=== PATIENT | female | born 1985 | race Caucasian/White ===

== ENCOUNTER 2020-02-25 16:20 | Outpatient (CLI) | payer BC, SELFPAY ==
--- NOTE | ~2020-02-25 | MR_ITS ---
EXAMINATION: MR brain/brain stem wo con EXAM DATE: 02/25/2020 17:00 INDICATION: Generalized migraine headaches, dizziness. Symptoms one year. TECHNIQUE: Magnetic resonance imaging (MRI) of the brain/brain stem obtained without contrast. Sagitt al T1, axial diffusion, gradient echo (T2*), T1, T2, FLAIR sequences obtained. There is no prior st udy for comparison. FINDINGS: There are no areas of restricted diffusion to suggest acute infarction. There is no acute hemorrhage seen on the T2*, a hemosiderin sensitive sequence. No intraparenchymal brain mass. The ve ntricles are normal in size. There are no extra-axial collections. Flow voids are seen in the cereb ral arteries on the T2-weighted sequences consistent with their expected patency. The orbits are unr emarkable. Soft tissue is unremarkable. No evidence of sinus or mastoid opacity. IMPRESSION: 1. Unremarkable brain MRI examination. Reviewed, dictated and finalized at location A.
== END 2020-02-25 16:21 | disposition home or self-care (01) ==
LOC: ANHIMG 16:27
PROVIDERS: PCP Family Medicine; Visit Provider Family Medicine
DX: R51 Headache (principal); R53.1 Weakness; R53.83 Other fatigue
CPT/HCPCS: 70551

== ENCOUNTER 2020-04-13 17:27 | Outpatient (CLI) | payer BC, SELFPAY ==
--- NOTE | ~2020-04-13 | XR_ITS ---
EXAMINATION: XR hip RT min 2V DATE: 04/13/2020 17:52 INDICATION: Right hip pain TECHNIQUE: Anteroposterior, frog leg, and cross-table lateral views of affected hip were obtained. COMPARISON: None. FINDINGS: Bone alignment is normal. There is no fracture. An IUD is noted. There are phleboliths in t he pelvis. IMPRESSION: 1. No acute osseous abnormality. Reviewed, dictated and finalized at location A.
== END 2020-04-13 17:28 | disposition home or self-care (01) ==
PROVIDERS: PCP Family Medicine; Visit Provider Family Medicine
DX: M25.551 Pain in right hip (principal)
CPT/HCPCS: 73502

== ENCOUNTER 2020-07-18 10:09 | Outpatient (CLI) | payer BC, SELFPAY ==
--- NOTE | ~2020-07-18 | XR_ITS ---
EXAMINATION: XR lg joint inject/asp w image DATE: 07/18/2020 11:09 INDICATION: Right hip pain TECHNIQUE: A time-out was performed to verify the patient's name, date of , and procedure to b e performed. The procedure including the risks, benefits, and alternatives was discussed with the pat ient. Risks discussed included bleeding and infection. The patient understood the risks and agreed to proceed. The skin overlying the right hip joint was prepped and draped in usual sterile fashion. A nesthetic was administered with 1% lidocaine subcutaneously. A 22 G needle was advanced under fluoro scopic guidance into the joint. Injection of 0.4 mL of Omnipaque 240 confirmed intra-articular posit ion of the needle. Subsequently, injectate consisting of 5 mm of a 3:2 mixture of 1% lidocaine: 10 m g/mL Kenalog for a total dosage of 20 mg Kenalog was instilled. Washout of contrast was seen confirmi ng intra-articular administration. The needle was removed and the entry site was cleaned and dressed. There were no immediate complications. Fluoroscopy exposure time was 0.1 minutes. The total number of images was 2. FINDINGS: Real-time fluoroscopy demonstrates the needle in the right hip joint. Patient's pain prior to procedure:3/10. Patient's pain following the procedure: 0/10. IMPRESSION: 1. Right hip joint injection of local anesthetic and steroid with decrease in the patient's presentin g pain. 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 Right hip joint injection of local anesthetic and steroid with decrease in t he patient's presenting pain.
== END 2020-07-18 10:10 | disposition home or self-care (01) ==
PROVIDERS: PCP Family Medicine; Visit Provider Orthopaedic Surgery
DX: M16.0 Bilateral primary osteoarthritis of hip (principal)
CPT/HCPCS: 20610; 77002; J3301; Q9966

== ENCOUNTER → 2021-01-04 09:39 | Outpatient (CLI) | payer BC, SELFPAY ==
--- NOTE | ~2021-01-04 | US_ITS ---
US abdomen complete EXAMINATION: US Abdomen Complete INDICATION: Chronic diarrhea, cramping and gas PROCEDURE: Realtime High Resolution abdomen ultrasound. COMPARISON: No prior studies for comparison FINDINGS: Gallbladder within normal limits. No gallstones, pericholecystic fluid, gallbladder wall t hickening or biliary dilatation. Common bile duct measures 4 mm. Liver echotexture within normal limits without focal mass. Pancreas within normal limits. Pancreati c tail is obscured by bowel gas. Spleen is unremarkeable. Renal echotexture is within normal limits bilaterally without hydronephrosis, contour deforming mass or renal stone. Right kidney measures 9.3 cm. Left kidney measures 9 cm. Visualized aspects of the aorta and IVC are within normal limits. Portal vein is patent. No sonograph ic Tavares's sign indicated by the technologist. IMPRESSION: 1: Normal abdominal ultrasound. Reviewed, dictated and finalized at location A.
== END ==
PROVIDERS: PCP Family Medicine; Visit Provider Nurse Practitioner Family
DX: K52.9 Noninfective gastroenteritis and colitis, unspecified (principal)
CPT/HCPCS: 76700

== ENCOUNTER 2021-06-29 08:35 | Outpatient (CLI) | payer BC, SELFPAY ==
--- NOTE | ~2021-06-29 | XR_ITS ---
EXAMINATION: XR shoulder LT min 2V INDICATION: Left shoulder pain TECHNIQUE: Four views of the left shoulder are submitted. COMPARISON: None FINDINGS: Normal alignment. No fracture. Glenohumeral and acromioclavicular joint spaces are normal. Soft tissues are unremarkable. IMPRESSION: 1. No acute osseous abnormality. 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
== END 2021-06-29 08:36 | disposition home or self-care (01) ==
LOC: ANHIMG 08:37
PROVIDERS: PCP Family Medicine; Visit Provider Family Medicine
DX: M25.512 Pain in left shoulder (principal)
CPT/HCPCS: 73030

== ENCOUNTER 2021-12-21 09:06 | Outpatient (CLI) | payer BC, SELFPAY ==
--- NOTE | ~2021-12-21 | XR_ITS ---
XR lumbar spine 2-3V 12/21/2021 09:30 Indication: Low back pain Procedure: 3 views lumbar spine Comparison: No prior studies for comparison. Findings: There are spinal stimulator leads partially visualized. There is disc narrowing at L5-S1. V ertebral body heights are maintained. Pedicles intact. No evidence for acute fracture, subluxation or spondylolisthesis. There is an IUD in the pelvis. Impression: 1: Mild lumbar spondylosis. Reviewed, dictated and finalized at location A. Impression: 1: Mild lumbar spondylosis.
== END 2021-12-21 09:07 | disposition home or self-care (01) ==
LOC: ANHIMG 09:08
PROVIDERS: PCP Family Medicine; Visit Provider Nurse Practitioner Family
DX: M54.50 Low back pain, unspecified (principal); M47.816 Spondylosis without myelopathy or radiculopathy, lumbar region
CPT/HCPCS: 72100

== ENCOUNTER 2022-04-02 14:35 | Outpatient (CLI) | payer BC, SELFPAY ==
--- NOTE | ~2022-04-02 | US_ITS ---
EXAMINATION: US venous doppler [facility] DATE: 04/02/2022 15:11 INDICATION: Left calf pain. TECHNIQUE: Grayscale ultrasound images without and with compression and Doppler ultrasound images of the left lower extremity veins were obtained. COMPARISON: None. FINDINGS: The visualized portions of left common femoral vein, profunda (deep) femoral vein, femoral vein, popl iteal vein, peroneal veins, posterior tibial veins, and greater saphenous vein outflow are patent. Th ere is a thrombosed superficial vein in left calf. IMPRESSION: 1. No deep venous thrombosis. 2. Thrombosed superficial vein in left calf. Reviewed, dictated and finalized at location A.
== END 2022-04-02 14:36 | disposition home or self-care (01) ==
LOC: ANHIMG 14:36
PROVIDERS: PCP Family Medicine; Visit Provider Nurse Practitioner Family
DX: M79.662 Pain in left lower leg (principal); I82.812 Embolism and thrombosis of superficial veins of left lower extremity
CPT/HCPCS: 93971

== ENCOUNTER 2023-04-24 09:02 | Outpatient (CLI) | payer BC, SELFPAY ==
--- NOTE | 2023-05-06 17:22 | WPDHOMESLEEP ---
Sleep Study - Home Unattended Date of Study: 04/24/23 Ordering Provider: Marycruz Fernández, Interpreting Provider: Kelly Pop, DO Home Sleep Study Type: Watch PAT Height: 1.6 m Weight: 99.79 kg Body Mass Index: 38.9 Neck Circumference (inches): 14.5 [place]: 14 Reason for Sleep Study Loud snoring, difficulty sleeping Sleep History The patient is a 37-year-old female with bipolar disorder, depression, anxiety, migraines and history of tobacco use that had a sleep study ordered by her primary care for evaluation of sleep disturbances. The patient denies awakening from sleep short of breath. She occasionally awakens at night with heartburn, belching or cough. She constantly snores loudly enough that others complain. She occasionally has trouble sleeping when she has a cold. He rarely wakes up gasping for air throughout the night. She occasionally has breathing problems at night observed by herself or others. She constantly sweats excessively at night. She occasionally has heart palpitations or irregular heartbeats during the night. She occasionally falls asleep during the day and frequently falls asleep while driving. She denies cataplexy and sleep paralysis. She occasionally has trouble at school or work due to sleepiness. She rarely experiences vivid dreamlike scenes upon awakening or falling asleep. He denies feeling afraid of falling asleep he rarely has nightmares. She denies remembering her dreams. She rarely has thoughts racing through her mind. She constantly feels sad, depressed and anxious. She constantly has muscular tension. She frequently notices parts of her body jerk. She rarely kicks during the night. She constantly has crawling and aching feelings in her legs and constantly has leg pain during the night. She rarely grinds her teeth during sleep and rarely awakens with morning jaw pain. She is constantly bothered by pain during the day and constantly awakened by pain during the night. She constantly wakes up feeling stiff in the morning. She constantly wakes up with sore or achy muscles. She constantly wakes up with pain in the neck, spine or other joints. Her bedtime on weekdays and weekends is variable. It takes her 30 minutes to fall asleep. She wakes up 2-3 times throughout the night to urinate and is able to fall back asleep immediately. She has a variable wake up time on both weekdays and weekends. She typically gets 8 hours of sleep per night. She will stay in bed for 30-60 minutes after waking up in the morning. She currently lives with her and son. She currently goes sleeps with her son. She denies consuming any caffeinated beverages within 2 hours of bedtime. She denies engaging in physical exercise before bedtime. She will read and watch television before falling asleep. She denies taking naps in the afternoon or the evening. She consumes 5-6 caffeinated beverages throughout the day. She is a former smoker. She denies alcohol use. She admits to recreational drug use. [facility] Past Medical History Medical History (Updated 05/06/23 @ 17:34 by Kelly Pop DO) Anxiety Bipolar 2 disorder Depression Migraine Sleep Procedure The sleep study was completed using WatchPAT a technically adequate device with seven channels: peripheral arterial tone, actigraphy, body position, snore, respiratory movement, pulse oximetry, sleep staging, and heart rate. Prior to using the device, the patient received verbal and written instructions for its application and was provided with the help desk phone number for additional telephonic instruction with 24-hour availability of qualified personnel to answer questions. The study was scored using CMS guidelines. Sleep Architecture The patient had a total recording time of 7 hours 8 minutes and a total sleep time of 6 hours 31 minutes. The sleep efficiency was 91.25%. The sleep latency was 16 minutes and the REM latency was 150 minute
[2023-05-06 17:37] VITALS: BMI 38.9
== END 2023-04-30 15:50 | disposition home or self-care (01) ==
PROVIDERS: PCP Family Medicine; Visit Provider Family Medicine
DX: G47.30 Sleep apnea, unspecified (principal); G47.9 Sleep disorder, unspecified
CPT/HCPCS: 95800

== ENCOUNTER 2024-04-28 11:14 | Outpatient (CLI) | payer BC, SELFPAY ==
--- NOTE | ~2024-04-28 | US_ITS ---
Limited Abdominal Sonogram: Real-time sonographic imaging of the right upper quadrant was performed. Clinical History: Abnormal liver enzymes Findings: The liver appears normal with no evidence of mass lesion or bile duct dilatation. Main por cristobal vein demonstrates normal direction of flow. The gallbladder is well distended, and appears normal with no evidence of gallstone or wall thickening. The common bile duct measures 4 mm. The visualize d pancreas, aorta, and IVC are unremarkable. Right kidney measures 9.4 cm in length, without hydronep hrosis or renal stone. Impression: No significant abnormality seen. Reviewed, dictated and finalized at location . Impression: No significant abnormality seen.
== END 2024-04-28 11:15 | disposition home or self-care (01) ==
LOC: MICIMG 11:15
PROVIDERS: PCP Nurse Practitioner Family; Visit Provider Nurse Practitioner Family
DX: R74.01 Elevation of levels of liver transaminase levels (principal)
CPT/HCPCS: 76705

== ENCOUNTER 2024-10-16 01:08 | Emergency (ER) | payer BC, SELFPAY ==
[2024-10-16 01:09] VITALS: BP 159/80; PULSE 68; RESP 18; TEMP 36.3; O2SAT 100
--- OUTSIDE RECORDS SUMMARY | 2024-10-16 01:11 | XMS_ITS | Clinical Summary ---
Author Organization [facility] Address [address] [place] [id number] Phone Care Team Providers Care Bus Driver/Monitor Name Role Phone Quentin Duque MD Primary Care Provider [phone] Social History Tobacco Use Types Packs/Day Years Used Date Smoking Tobacco: Never Assessed Comments Unknown Sex and Gender Information Value Date Recorded Sex Assigned at Not on file Legal Sex Female 2:37 PM CDT Gender Identity Not on file Sexual Orientation Not on file Plan of Treatment Health Maintenance Due Date Last Done Comments DTAP/TDAP/TD VACCINES (1 - Tdap) 2002 HEPATITIS B VACCINES (1 of 3 - 19+ 3-dose series) 2002 PAP SMEAR 2004 CERVICAL CANCER SCREENING 2013 HPV/Cotest (30-65) 2013 PAP SMEAR 2013 BREAST CANCER SCREENING 2023 INFLUENZA VACCINE (#1) 2024 HPV VACCINES Aged Out No longer eligi ble based on patient's age to complete this topic PNEUMOCOCCAL VACCINE 0-49 YEARS Aged Out No longer eligible based on patient's age to complete this topic Insurance [facility] [id number] Care Teams Bus Driver/Monitor Relationship Specialty Start Date End Date Quentin Duque MD [address] [place] [address] PCP - General Family Practice 12/22/13
--- OUTSIDE RECORDS SUMMARY | 2024-10-16 01:11 | XMS_ITS | Encounter Summary ---
Author Organization [facility] Address [address] [place] [address] Care Team Providers Care Immunopathologist Name Role Phone Marycrzu Fernández MD Primary Care Provider + Vinny Dowling DO Unavailable [phone] Juve Guerrero MD Unavailable [phone] Encounter Details Date Type Department Care Team (Late st Contact Info) Description 10/13/2024 Orders Only [facility] Health Information Management [address] [place] [address] Scanning, Provider Social History Tobacco Use Types Packs/Day Years Used Date Smoking Tobacco: Former Cigarettes 0.5 2012 Smokeless Tobacco: Never Alcohol Use Standard Drinks/Week Comments Not Currently 0 (1 standard drink = 0.6 oz pur e alcohol) AUDIT-C Answer Date Recorded Q1: How often do you have a drink containing alcohol? Never 02/05/2024 Q2: How many drinks containi ng alcohol do you have on a typical day when you are drinking? Patient does not drink Q3: How often do you have si x or more drinks on one occasion? Never 02/05/2024 Hunger Vital Sign Answer Date Recorded Within the past 12 months, y ou worried that your food would run out before you got the money to buy more. Never true 04/02/20 24 Within the past 12 months, t he food you bought just didn't last and you didn't have money to get more. Never true 04/02/2024 Personal Safety Answer Date Recorded Have you ever been in or are you currently in a harmful physical or emotional relationship or is someone making you feel afraid or unsafe? 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 Author CCM Chronic Pain Care Plan Chronic Care Management On track(2022 9:20 AM CDT) No Dianne Clancy, DELIO Note: Problem: Chronic Pain Goals: 1. Minimize further functional decline 2. Maximize quality of life 3. Control pain Strategies: - Activity/exercise program recommendation - Conservative stepwise pain medicine strategy with multi-disciplinary approach - Recommend healthy lifestyle strategies and compensatory methods as needed Reduce the likelihood of falling Lifestyle On track(2022 9:20 AM CDT) No Dianne Clancy, DELIO Note: Below are four things you can do to prevent falls: Begin an exercise program to improve your leg strength & balance Ask your doctor or pharmacist to review your medicines Get annual eye check-ups & update your eyeglasses Make your home safer by: Removing clutter & tripping hazards Putting railings on all stairs & adding grab bars in the bathroom Having good lighting, especially on stairs Contact your local community or senior mineral for information on exercise, fall prevention programs, or options for improving home safety. documented as of this encounter Procedures Procedure Name Priority Date/Time Associated Diagnosis Comments SCAN - OTHER ORDERS 10/13/2024 documented in this encounter Results * SCAN - OTHER ORDERS (10/13/2024) us Provider Scanning Final Result documented in this encounter Visit Diagnoses Not on filedocumented in this encounter Care Teams Immunopathologist Relationship Specialty Start Date End Date Marycruz Fernández MD [address] [place] [address] [address] [place] [id number] PCP - General Family Medicine 06/23/20 Vinny Dowling DO [address] [facility] [address] [place] [address] Referring Physician Psychiatry 06/23/20 Juve Guerrero MD [address] [facility] [address] [place] [address] Consulting Physician Obstetrics and Gynecology 02/05/24 documented as of this encounter
--- OUTSIDE RECORDS SUMMARY | 2024-10-16 01:11 | XMS_ITS | Referral Summary ---
Author Organization [facility] Address [address] [place] [address] Care Team Providers Care Production Operations Inspector Name Role Phone Marycruz Fernández MD Primary Care Provider + Vinny Dowling DO Unavailable [phone] Juve Guerrero MD Unavailable [phone] Encounters Date Type Department Care Team Description 10/13/2024 Orders Only [facility] Health Information Management [address] [place] [address] Scanning, Provider from Last 3 Months Allergies Active Allergy Reactions Criticality Noted Date Comments Cephalexin Nausea only Low 02/28/2023 Medications lithium ER (ESKALITH) 450 mg CR tablet Take 1 tablet (450 mg total) by mouth 2 (two) times a day Active lamoTRIgine (LaMICtal) 100 mg tablet Take 1.5 tablets (150 mg total) by mouth 2 (two) times a day 0 Active docosahexaenoic acid/epa (FISH OIL ORAL) Take 3,750 mg by mouth daily Active lurasidone (LATUDA) 40 mg tablet Take 2 tablets (80 mg total) by mouth nightly Active cetirizine (ZyrTEC) 10 mg tablet Take 1 tablet (10 mg total) by mouth as needed Active acetaminophen (TYLENOL) 500 mg tablet Take 2 tablets (1,000 mg total) by mouth every 6 (six) hours as needed for pain Active vscctgdk-tgqf-E W-cxxiynn-oejr (One-A-Day Womens Formula) 18 mg iron-400 mcg-500 mg Ca tablet Take 1 tablet by mouth daily Active copper (PARAGARD) 380 square mm IUDIndications: Contraception,2 014 in STL 1 each by intrauterine route once Active buPROPion XL (WELLBUTRIN XL) 300 mg 24 hr tablet Take 1 tablet (300 mg total) by mouth daily Active sertraline (ZOLOFT) 100 mg tablet Take 1 tablet (100 mg total) by mouth 2 (two) times a day Active propranolol LA (INDERAL LA) 60 mg 24 hr capsuleIndicati ons:Migraine Prevention Take 1 capsule (60 mg total) by mouth daily 2 Active omeprazole (PriLOSEC) 40 mg capsule Take 1 capsule (40 mg total) by mouth daily 2 Active gabapentin (NEURONTIN) 800 mg tablet Take 1 tablet (800 mg total) by mouth 3 (three) times a day 270 tablet 1 3 Active traZODone (DESYREL) 50 mg tablet Take 1 tablet (50 mg total) by mouth nightly as needed for sleep 4 Active Hospital, Clinic, or Other Facility Administered Medication Ordered Dose Route Frequency Start Date End Date Status copper (PARAGARD) 380 square mm IUD 1 eachIndications:Pre gnancy Contraception 1 each intrauterine Continuous (implanted device) 11/04/2023 4 Active Active Problems Problem Noted Date Diagnosed Date Intrauterine contraceptive d evice threads lost, initial encounter 02/05/2024 IUD threads lost 12/26/2023 Pain in joint of right hip 06/06/2020 Articular cartilage disorder of hip 06/06/2020 Morbid obesity 06/06/2020 Other chronic pain 04/25/2020 Bipolar I disorder, most rec ent episode (or current) depressed 04/25/2020 Obstructive sleep apnea syndrome 02/16/2020 Degeneration of lumbosacral intervertebral disc 01/06/2020 Low back pain 01/06/2020 Lumbar radiculopathy 01/06/2020 Acne 11/30/2019 Dysmenorrhea 11/30/2019 Suicide attempt 01/19/2018 Overview (01/06/2020): 12/2017 -- Overdose SSRI/Wellbutrin. 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 Not on file Not on file Not on tatiana e Last Filed Vital Signs Vital Sign Reading Time Taken Comments Blood Pressure 120/71 04/02/2024 8:40 AM CDT Pulse 62 04/02/2024 8:40 AM CDT Temperature 36.1 C (97 F) 02/05/2024 11:50 AM CDT Respiratory Rate 16 02/05/2024 12:20 PM CDT Oxygen Saturation 99% 04/02/2024 8:40 AM CDT Inhaled Oxygen Concentration - - Weight 99.1 kg (218 lb 6.4 oz) 04/02/2024 8:40 A M CDT Height 160 cm (5' 3 ) 04/02/2024 8:40 AM CDT Body Mass Index 38.69 04/02/2024 8:40 AM CDT Plan of Treatment Not on file Goals Goal Patient Goal Type Associated Problems Recent Progress Patient-Stated? Author CCM Chronic Pain Care Plan Chronic Care Management On track(2022 9:20 AM CDT) No Dianne Clancy, RN Note: Problem: Chronic Pain Goals: 1. Minimize further functional decline 2. Maximize quality of life 3. Control pain Strategies: - Activity/exercise program recommendation - Conservative stepwise pain medicine strategy with multi-disciplinary approach - Recommend healthy lifestyle strategies and compensatory methods as needed Reduce the likelihood of falling Lifestyle On track(2022 9:20 AM CDT) Dianne Wilson, RN Note: Below are four things you can [...] on stairs Contact your local community or [facility] for information on exercise, fall prevention programs, or options for improving home safety. Medical Devices Implanted Type Area Director Retail Brand Development Device Identifier Shelf Expiration Date Model / Serial / Lot [employer] [id number] Vectris 5mm 60cm 1x8 Electrode Mri Lead Neurostimulator - [id number] Implanted:Qty: 1 on 08/11/2020 by Nissa Roberts MD at [facility] Lead Left: Thoracic -Lumbar Spine [employer] 06/01/2023 [id number] / / [id number] [employer] [id number] Vectris 5mm 60cm 1x8 Electrode Mri Lead Neurostimulator - [id number] Implanted:Qty: 1 on 08/11/2020 by Nissa Roberts MD at [facility] Lead Left: Thoracic -Lumbar Spine [employer] 06/01/2023 [id number] / / [id number] [employer] [id number] Vectris 5mm 60cm 1x8 Electrode Trial Lead Neurostimulator - [id number] - [id number] Implanted:Qty: 1 on 07/06/2020 by Nissa Roberts MD at [facility] 4 Spinal Cord Stimulator [employer] 03/24/2024 [id number] / [id number] / Description:07/12/20 receive d 70% relief from SCS trial [employer] [id number] Vectris 5mm 60cm 1x8 Electrode Trial Lead Neurostimulator - [id number] - [id number] Implanted:Qty: 1 on 07/06/2020 by Nissa Roberts MD at [facility] 4 Spinal Cord Stimulator [employer] 06/12/2024 [id number] / [id number] / Copper (Paragard) Iud Uterus [employer] Inc [id number] Neurostimulator Implantable Chronic Pain Rs2 - [id number] - [id number] Implanted:Qty: 1 on 08/11/2020 by Nissa Roberts MD at [facility] Left: Flank [employer] 04/09/2021 [id number] / [id number] / Description:[email or web address]. pdf Procedures Procedure Name Priority Date/Time Associated Diagnosis Comments SCAN - OTHER ORDERS 10/13/2024 PAP ONLY Routine 06/23/2020 2:19 PM JTAC from Last 3 Months or Most Recently Relevant to Health Maintenance Results * SCAN - OTHER ORDERS (10/13/2024) us Provider Scanning Final Result * Pap Only (06/23/2020 2:19 PM JTAC) CLINICAL INFORMATION: SCREEN [facility] LMP 05/24/[address] [facility] Previous Pap INFORMATION NOT PROVIDED [facility] [facility] Prev. Bx INFORMATION NOT PROVIDED [facility] SOURCE: Cervix, Endocervix [facility] [facility] Pap, specimen adequacy Satisfactory for evaluation. Endocervical/kohler sformation zone component present. [employer] [facility] HPV interp Negative for intraepithelial lesion or malignancy. [facility] Body Stylist GABRIEL LYON(ASCP) CT screening location: [place] [address] Administration [place] [address] [facility] Comment [facility] Comment: EXPLANATORY NOTE: The Pap is a screening test for cervical cancer. It is not a diagnostic test and is subject to false negative and false positive results. It is most reliable when a satisfactory sample, regularly obtained, is submitted with relevant clinical findings and history, and when the Pap result is evaluated along with historic and current clinical information. 06/23/2020 2:19 PM JTAC 06/26/2020 6:34 AM JTAC us Juve Guerrero MD LAB CYTOLOGY ORDERABLES Final Result [place] [address] [address] [place] [id number] from Last 3 Months or Most Recently Relevant to Health Maintenance Insurance [employer] [place] [employer] Advance Directives For more information, please contact: [phone] * Full Code (Latest Code Status on File) Date Activated Date Inactivated Comments 08/11/2020 4:00 PM 08/11/2020 9:57 PM Care Teams Production Operations Inspector Relationship Specialty Start Date End Date Marycruz Fernández MD [address] [place] [address] PCP - General Family Medicine 06/23/20 Vinny Dowling DO [address] [facility] [address] [place] [address] Referring Physician Psychiatry 06/23/20 Juve Guerrero MD [address] [place] [address] Consulting Physician Obstetrics and Gynecology 02/05/24
--- OUTSIDE RECORDS SUMMARY | 2024-10-16 01:11 | XMS_ITS | Data Portability ---
Author Organization [place] [facility], Main Office Address [address] [place] [address] Assessment Encounter Date Assessment Date Assessment LastModified by Organization Details LastModified Time 11/25/2023 11/25/2023 38-year-old female presents for follow-up of her bilateral thumb CMC pain. She previously had an injection into her right side back in June. This worked quite well for her but is beginning to wear off. She has been wearing the brace on her right side, she does not have a brace on the left side. She is unable to take anti-inflammator ies. The bilateral thumb CMC joints are bothering her today, and she comes in wanting to get repeat injections. She is tenderness palpation at the thumb CMC joint, worse on the left. Positive grind. She has sensation intact to light touch throughout, 2+ radial pulse. We proceeded with bilateral thumb CMC injections. She tolerated them well. She should continue using topical anti-inflammator ies, and wearing the brace. We got her a brace for the left thumb as well. Follow-up as needed. [email or web address] Not available 11/25/2023 10:09:35 03/08/2024 03/08/2024 The patient has moderate bilateral thumb CMC arthrosis new x-rays today show the right to look slightly worse than the left. We talked about treatment options today in detail she states she can not take oral anti-inflammator y medication because she is on other medications that interact with this therefore she wanted proceed with cortisone only. Under sterile conditions I injected the patient's bilateral thumb CMC joints in the office with 2 cc of 0.5% bupivacaine and 10 mg of Kenalog each. The patient tolerated the procedures well. We will see her back as needed she voiced understanding agrees above plan she will call if her thumb pain returns. [email or web address] Not available 03/08/2024 11:57:08 Plan of Treatment Reminders Order Date Submit Date Provider Last Modified By Organization Details Last Modified Time Details Appointments None recorded. Lab hepatitis C virus Ab, serum [address] (Lab), [address] [place], [address], 4 08:32:35 lipid panel, serum [address] (Lab), [address] [place], [address], 4 08:32:34 vitamin D, 1,25-dihydr oxy, serum [address] (Lab), [address] [place], [address], 4 08:32:34 CMP, serum or plasma [address] (Lab), [address] [place], [address], 4 08:32:34 TSH, serum or plasma [address] (Lab), [address] [place], [address], 4 08:32:34 CBC w/ auto diff [address] (Lab), [address] [place], [address], 4 08:32:34 [email or web address] obin, total, blood [address] (Lab), [address] [place], [address], 08:32:34 Referral None recorded. Procedures injection/a spiration joint/bursa (PROC) 2023 024 [email or web address] In-Office Order, Internal Use Only DO Not Attach Compendium DO Not Attach Compendium, Do Not Delete/merge, [id number] 4 09:56:47 injection/a spiration joint/bursa (PROC) 2023 024 [email or web address] In-Office Order, Internal Use Only DO Not Attach Compendium DO Not Attach Compendium, Do Not Delete/merge, [id number] 4 09:56:47 injection/a spiration joint/bursa (PROC) 2023 024 [email or web address] In-Office Order, Internal Use Only DO Not Attach Compendium DO Not Attach Compendium, Do Not Delete/merge, [id number] 10:11:57 Surgeries None recorded. Imaging MAMMO, screening, digital, bilateral 2024 025 [email or web address] [facility], [address], [place], [address], 5 17:59:20 XR, hand 2023 024 [email or web address] [facility] [place], [address] [facility] [address], [place], [address], 4 11:58:10 MAMMO, screening, digital, bilateral - *Please call pt to schedule* 2023 024 [email or web address] [facility], [address], [place], [address], 4 10:31:40 XR, hand, 3 or more view 2023 024 [email or web address] [facility] [place], [address] [facility] [address], [place], [address], 4 00:25:35 Medication Orders bupivacaine HCl 0.5 % (5 mg/mL) injection solution [address] [facility]26, [address] [place], [place], [id number], 4 11:47:48 Kenalog 10 mg/mL suspension for injection [address] [facility]38140, [address] [place], [place], [id number], 4 11:47:48 bupivacaine HCl 0.5 % (5 mg/mL) injection solution [address] [facility]05770, [address], [place], [id number], 4 11:47:48 Kenalog 10 mg/mL suspension for injection [address] [facility] #91545, [address] [place], [place], [id number], 4 11:47:48 trazodone 50 mg tablet 2023 024 [facility] #42050, [address], [place], [id number], 4 12:29:45 gabapentin 800 mg tablet 2023 024 [facility] #36283, [address], [place], [id number], 4 12:29:51 propranolol ER 60 mg capsule,24 hr,extended release 2023 024 [facility] #98439, [address], [place], [id number], 4 12:32:45 omeprazole 40 mg capsule,del ayed release 2023 024 [facility] #84795, [address], [place], [id number], 4 12:32:47 bupivacaine HCl 0.5 % (5 mg/mL) injection solution 2023 024 3 [facility] #15960, [address], [place], [id number], 4 12:00:42 Kenalog 10 mg/mL suspension for injection 2023 024 [email or web address] 3 [facility] #21256, [address], [place], [id number], 4 12:00:50 Patient TargetsNo targets recorded. Patient Instructions Encounter Date Encounter Id Patient Instructions Last Modified By Organization Details Last Modified Time 07/28/2024 [id number] Follow up in 3 months Tests: Complete mammogram Referral: Recommend: Tetanus vaccine Shingles vaccine [email or web address] Not available 07/28/2024 17:04:57 Reason for Referral None Reported. Results Created Date Observation Date Name Description Value Unit Range Abnormal Flag Note LastModifiedBy Organization Detail LastModifiedTime 11/25/19 24 XR, hand, 3 or more view No observ ation record ed. [email or web address] [facility] [place] [address], [place], [address], 11/25/2023 09:46:28 03/08/20 24 XR, hand No observ ation record ed. [email or web address] [facility] [place] [address], [place], [address], 03/08/2024 11:58:08 04/28/20 24 04/28/2024 US, liver No observ ation record ed. [email or web address] [facility] [address], [place], [address], 04/28/2024 14:16:20 Result Notes None recorded. Problems Name Problem SNOMED Code Status Onset Date Resolution Date Notes Provider Name and Address Organization Details Recorded Time Acne 23294216 Active 2019 Not Available [facility] 3 18:20:54 Lumbar radiculopa thy 596859490 Active Selma Durbin APRN [address], [place], [address] , [employer] 5 16:52:56 Bipolar disorder 46706221 Active 2016 Selma Durbin APRN [address], [place], [address] , [employer] 5 16:52:18 Irritable bowel syndrome with diarrhea 151401011 Active Selma Durbin APRN [address], [place], [address] , [employer] 5 16:52:48 Abdominal pain 45704645 Active Not Available [employer] 3 18:20:54 Sciatica 74746173 Active 2019 Selma Durbin APRN [address], [place], [address] , [employer] 5 16:53:08 Morbid obesity 571530002 Active 2019 Not Available [employer] 3 18:20:54 Dysmenorrh ea 736065995 Active 2019 Not Available [employer] 3 18:20:54 Low back pain 913940909 Active Selma Durbin APRN [address], [place], [address] , [employer] 5 16:52:51 Pain in right hip joint 7925269305492 02 Active 2019 Not Available [facility] 3 18:20:54 Pain of right wrist 4043513500555 00 Active 2021 Not Available [facility] 3 18:20:54 Depressive disorder 35157430 Active 2016 Selma Durbin APRN [address], [place], [address] , [employer] [facility] 5 16:52:39 History of operative procedure on lumbar spinal structure 354410015 Active Not Available [facility] 3 18:20:54 Articular cartilage disorder of hip 129400837 Active 2019 Not Available [facility] 3 18:20:54 Anxiety 21814514 Active 2016 Selma Durbin APRN [address], [place], [address] , [employer] [facility] 5 16:52:13 Degenerati on of lumbosacra l interverte bral disc 96494163 Active Not Available [facility] 3 18:20:54 Diarrhea 62771639 Active Not Available [facility] 3 18:20:55 Obstructiv e sleep apnea syndrome 03679240 Active 2019 Selma Durbin APRN [address], [place], [address] , [employer] [facility] 5 16:53:04 Pain in right hand 5937601837086 09 Active 2022 JASMIN Morley, [employer] [facility] [employer] [facility] 3 15:39:01 Osteoarthr osis of the carpometac arpal joint of the thumb 46870335 Active 2022 Kaden Duque MD [address], [place], [address] , [employer] [facility] [employer] [facility] 3 16:46:19 Sleep apnea 14274685 Active 2022 Marycruz Fernández MD [address], [address], [place], [address] , [place] [facility] 3 12:41:57 Insomnia 489900378 Active 2022 Selma Durbin APRN [address], [place], [address] , [place] [facility] 5 16:52:44 Decreased hearing 968469849 Active 2022 Selma Durbin APRN [address], [place], [address] , [place] [facility] 5 16:52:22 Chronic diarrhea 052167340 Active 2022 Selma Durbin APRN [address], [place], [address] , [place] [facility] 5 16:52:26 Dysuria 02925159 Active 2022 Esther Ohara RN null, [place] [facility] 3 10:51:22 Flank pain 654752535 Active 2022 SUNG Marcelo [address], [place], [address] , [place] [facility] 3 17:18:44 Acute urticaria 508950770 Active 2023 Marycruz Fernández MD [address], [place], [address] , [place] [facility] 4 09:38:43 Eruption 318445207 Active 2023 Marycruz Fernández MD [address], [place], [address] , [place] [facility] 4 18:45:12 Pain of left hand 1083246380312 03 Active 2023 EVI Hunter null, [place] [facility] 4 09:46:04 Liver enzymes level above reference range 949944475 Active 2023 ELISABETH Mccollum [address] [facility] [address], [place], [address] , [employer] 4 16:41:52 Abnormal weight 35432571 Active 2023 Selma Durbin APRN [address], [place], [address] , [employer] 16:52:08 Notes:gas Problem Notes None recorded. Procedures Surgical History Date Name Laterality Status Provider Name and Address Organization Details Recorded Time 11/25/19 24 Ortho - Cortisone Injection completed Joss Mills MD [address], [place], [address], [employer] 11/25/2023 10:08:12 06/24/20 23 Ortho - Cortisone Injection completed Phoebe Casas NP [address], [place], [address], [employer] 06/24/2023 12:21:50 08/15/19 21 implantation of neurostimulator in spine completed Not Available [facility] 09/18/2022 18:19:48 Imaging Results Imaging Date Name Status LastModified by Organiz ation Details LastModified Time 11/25/2023 XR, hand, 3 or more view completed [email or web address] [facility] [place] [address], [place], [address], 11/25/2023 09:46:28 03/08/2024 XR, hand completed [email or web address] [facility] [place] [address], [place], [address], 03/08/2024 11:58:08 04/28/2024 US, liver completed [email or web address] [facility] [address], [place], [address], 04/28/2024 14:16:20 Procedure Notes None recorded. Medical Equipment None Reported. Allergies No known drug allergies Medications Name Sig Start Date Stop Date Status Note LastModified by Organization Details LastModified Time naltrexone 4.5 mg capsule TAKE ONE CAPSULE BY MOUTH EVERY DAY active Not Available Not Available No t Available naltrexone 3mg capsules One capsule by MOUTH daily 07/28 completed Not Available Not Available Not Available naltrexone 1.5mg capsule TAKE ONE CAPSULE BY MOUTH EVERY DAY 07/28 completed Not Available Not Available Not Available naltrexone 4.5mg caps One by MOUTH EVERY DAY 07/28 completed Not Available Not Available Not Available fluoxetine 40 mg capsule TK 2 CS PO QD 01/27 completed Not Available Not Available Not Available cyclobenzap rine 10 mg tablet TK 1 T PO TID PRN 11/09 completed Not Available Not Available Not Available amoxicillin 500 mg capsule TAKE 2 CAPSULES BY MOUTH NOW THEN 1 CAPSULE BY MOUTH THREE TIMES DAILY UNTIL ALL TAKEN 06/30 completed Not Available Not Available Not Available lamotrigine 150 mg tablet bid 02/24 completed Not Available Not Available Not Available neomycin-po lymyxin-hyd rocort 3.5 mg/mL-10,00 0 unit/mL-1 % ear solution INSTILL 3-4 DROPS INTO AFFECTED EAR(S) BY OTIC ROUTE 3 TIMES PER DAY active Use into Lt ear, tid for next 7-10 days as direc lorena. Not Available Not Available Not Available prednisone 10 mg tablet Take 1 tablet every day by oral route as directed for 7 days. active Take 40mg on day 1,2; Than 20mg on day 3,4; Than 10mg on day 5,6,7 . Take with food. Not Available Not Available Not Available gabapentin 600 mg tablet TK 1 T PO TID 11/09 completed Not Available Not Available Not Available lamotrigine 200 mg tablet TK 1 T PO QHS 03/26 completed Not Available Not Available Not Available trazodone 50 mg tablet TAKE 1 TABLET BY MOUTH EVERY NIGHT AT BEDTIME NEEDED FOR INSOMNIA active Not Available Not Available No t Available azithromyci n 250 mg tablet TAKE 2 TABLETS (500 MG) BY ORAL ROUTE ONCE DAILY FOR 1 DAY THEN 1 TABLET (250 MG) BY ORAL ROUTE ONCE DAILY FOR 4 DAYS active Not Available Not Available No t Available ibuprofen 800 mg tablet 05/29 completed Not Available Not Available Not Available hydrocodone 5 mg-acetamin ophen 325 mg tablet 11/09 completed Not Available Not Available Not Available meloxicam 15 mg tablet 1 po qday 02/10 completed Not Available Not Available Not Available naltrexone 50 mg tablet TAKE 1 TABLET BY MOUTH EVERY DAY 12/19 completed Not Available Not Available Not Available ondansetron HCl 4 mg tablet TAKE 1 TO 2 TABLETS BY MOUTH EVERY 8 HOURS NEEDED FOR NAUSEA 06/26 completed Not Available Not Available Not Available bupivacaine HCl 0.5 % (5 mg/mL) injection solution Take 10 mg by injection route. 2023 active Not Available Not Available Not Avai lable prednisone 20 mg tablet TAKE 2 TABLETS BY MOUTH EVERY MORNING FOR 5 DAYS 02/10 completed Not Available Not Available Not Available rizatriptan 10 mg tablet TAKE 1 TABLET BY MOUTH AT ONSET OF SYMPTOMS. OK TO REPEAT DOSE EVERY 2 HOURS FOR 2 DOSES. DO NOT EXCEED 3 TABLETS IN 24 HOURS. 06/24 completed Not Available Not Available Not Available propranolol ER 60 mg capsule,24 hr,extended release TAKE 1 CAPSULE BY MOUTH EVERY DAY active Not Available Not Available No t Available sertraline 100 mg tablet TAKE 2 TABLETS BY MOUTH EVERY DAY active Not Available Not Available No t Available sumatriptan 50 mg tablet 11/24 completed Not Available Not Available Not Available lithium carbonate ER 300 mg tablet,exte nded release TK 1 T PO BID 11/09 completed Not Available Not Available Not Available acetaminoph en 300 mg-codeine 30 mg tablet TAKE 1 TABLET BY MOUTH EVERY 4 TO 6 HOURS NEEDED FOR PAIN 07/28 completed Not Available Not Available Not Available Tamiflu 75 mg capsule Take 1 capsule twice a day by oral route for 5 days. 11/09 completed Not Available Not Available Not Available sulfamethox azole 800 mg-trimetho prim 160 mg tablet TAKE 1 TABLET BY MOUTH EVERY 12 HOURS FOR 3 DAYS 02/10 completed Not Available Not Available Not Available omeprazole 40 mg capsule,del ayed release TAKE 1 CAPSULE BY MOUTH EVERY DAY active Not Available Not Available No t Available tramadol 50 mg tablet Take 1 tablet every 6 hours by oral route for 5 days. 03/26 completed Not Available Not Available Not Available triamcinolo ne acetonide 0.1 % topical cream APPLY TO SPOTS TWICE DAILY NEEDED 02/10 completed Not Available Not Available Not Available lithium carbonate ER 450 mg tablet,exte nded release TAKE 1 TABLET BY MOUTH TWICE DAILY active Not Available Not Available No t Available lamotrigine 25 mg tablet active Not Available Not Available Not Available prednisone 10 mg tablets in a dose pack Take 1 tab by mouth, 3 times a day for 3 daysTake 1 tab by mouth 2 times a day for 2 daysTake 1 tab by mouth once a day for 1 day 02/08 completed Not Available Not Available Not Available oxycodone-a cetaminophe n 5 mg-325 mg tablet TAKE 1 TABLET BY MOUTH EVERY 6 HOURS FOR UP TO 7 DAYS NEEDED FOR PAIN 02/21 completed Not Available Not Available Not Available amoxicillin 875 mg tablet TAKE 1 TABLET BY MOUTH TWICE DAILY 02/24 completed Not Available Not Available Not Available gabapentin 800 mg tablet TAKE 1 TABLET BY MOUTH THREE TIMES DAILY active Not Available Not Available No t Available Kenalog 10 mg/mL suspension for injection Take 10 mg by injection route. 2023 active [facility]: [phone] Not Available Not Available Not Available baclofen 10 mg tablet TAKE 1 TABLET BY MOUTH FOUR TIMES DAILY NEEDED 02/10 completed Not Available Not Available Not Available hydrocodone 7.5 mg-acetamin ophen 325 mg tablet TAKE 1 TABLET EVER 4 TO 6 HOURS NEEDED 02/24 completed Not Available Not Available Not Available cephalexin 500 mg capsule Take 1 capsule every 12 hours by oral route for 7 days. active Not Available Not Available No t Available gabapentin 300 mg capsule TAKE ONE CAPSULE BY MOUTH THREE TIMES DAILY 02/24 completed Not Available Not Available Not Available diclofenac sodium 75 mg tablet,neisha yed release TAKE 1 TABLET BY MOUTH TWICE DAILY NEEDED FOR PAIN 06/24 completed Not Available Not Available Not Available ziprasidone 40 mg capsule TAKE ONE CAPSULE BY MOUTH TWICE DAILY 02/24 completed Not Available Not Available Not Available ibuprofen 600 mg tablet TK 1 T PO Q 6 H PRN P 05/29 completed Not Available Not Available Not Available benzoyl peroxide 5 % topical cleanser WASH AA BID active Not Available Not Available No t Available methylpredn isolone 4 mg tablets in a dose pack FOLLOW PACKAGE DIRECTION S 02/24 completed Not Available Not Available Not Available ondansetron 4 mg disintegrat ing tablet 05/29 completed Not Available Not Available Not Available dicyclomine 10 mg capsule 05/29 completed Not Available Not Available Not Available lamotrigine 100 mg tablet TAKE 1 AND 1/2 TABLETS BY MOUTH TWICE DAILY active Not Available Not Available No t Available cyclobenzap rine 5 mg tablet TK 1 T PO TID PRN 11/09 completed Not Available Not Available Not Available bupropion HCl XL 300 mg 24 hr tablet, extended release TAKE 1 TABLET BY MOUTH ONCE DAILY IN THE MORNING active Not Available Not Available No t Available bupropion HCl XL 150 mg 24 hr tablet, extended release TAKE 1 TABLET BY MOUTH DAILY IN THE MORNING active Not Available Not Available No t Available nitrofurant oin monohydrate /macrocryst als 100 mg capsule TAKE 1 CAPSULE BY MOUTH EVERY 12 HOURS FOR 7 DAYS 02/10 completed Not Available Not Available Not Available ibuprofen 01/27 completed Not Available Not Available Not Available Imodium 06/26 completed Not Available Not Available Not Available Zyrtec-D 01/27 completed Not Available Not Available Not Available Xifaxan 550 mg tablet TAKE 1 TABLET BY MOUTH TWICE DAILY FOR 14 DAYS 06/26 completed Not Available Not Available Not Available lurasidone 40 mg tablet TAKE 1/2 TABLET BY MOUTH DAILY FOR 7 DAYS THEN TAKE 1 TABLET BY MOUTH DAILY WITH FOOD 02/10 completed Not Available Not Available Not Available lurasidone 80 mg tablet TAKE 1 TABLET BY MOUTH DAILY IN THE EVENING WITH FOOD active Not Available Not Available No t Available ropivacaine (PF) 5 mg/mL (0.5 %) injection solution in office 02/24 completed [facility] [phone] Not Available Not Available Not Available lurasidone 20 mg tablet active Not Available Not Available Not Available lurasidone 60 mg tablet TAKE 1 TABLET BY MOUTH EVERY DAY AT DINNER 02/10 completed Not Available Not Available Not Available Virtussin AC 10 mg-100 mg/5 mL oral liquid 05/29 completed Not Available Not Available Not Available Viberzi 100 mg tablet TAKE 1 TABLET BY MOUTH TWICE DAILY WITH MEALS 06/26 completed Not Available Not Available Not Available Ubrelvy 100 mg tablet Take by oral route for 1 day. 06/24 completed Not Available Not Available Not Available Caplyta 42 mg capsule TAKE 1 CAPSULE BY MOUTH EVERY DAY 02/10 completed Not Available Not Available Not Available Nurte ODT 75 mg disintegrat ing tablet DISSOLVE ONE TABLET BY MOUTH EVERY DAY NEEDED FOR MIGRAINE 12/21 completed Not Available Not Available Not Available Fluarix Quad (PF) 60 mcg (15 mcg x 4)/0.5 mL IM syringe ADM 0.5ML IM UTD active Not Available Not Available No t Available BinaxNOW COVID-19 Ag Self Test kit TEST DIRECTED TODAY 06/24 completed Not Available Not Available Not Available naltrexone 4.5 mg capsule Take 1 capsule every day by oral route. active Not Available Not Available No t Available Vitals Date Recorded Body height Body mass index (BMI) Body weight Pain severity - 0-10 verbal numeric rating [Score] - Reported Provider Name and Address Organization Details Last Updated DateTime 11/25/2023 160.02 cm 39 kg/m2 43585.32 g 4 EVI Hunter [facility] [email or web address] [facility] 11/25/2023 09:45:35 Date Recorded Body height Body mass index (BMI) Body weight Body temperature Heart rate Oxygen saturation Oxygen saturation in Arterial blood by Pulse oximetry Systolic blood pressure Diastolic blood pressure Provider Name and Address Organization Details Last Updated DateTime 4 160.02 cm 38.1 kg/m2 82253.3 6 g 98.1 [degF] 61 /min 98 % 98 % 132 mm[Hg] 84 mm[Hg] Manav Diallo RN [facility] [employer] [facility] 4 11:58:12 Date Recorded Body height Body mass index (BMI) Body weight Provider Name and Address Organization Details Last Updated DateTime 03/08/2024 160.02 cm 38.1 kg/m2 90834.36 g Alley Negron CNA [facility] [employer] [facility] 03/08/2024 09:52:32 Date Recorded Body height Body mass index (BMI) Body weight Body temperature Heart rate Oxygen saturation Oxygen saturation in Arterial blood by Pulse oximetry Systolic blood pressure Diastolic blood pressure Provider Name and Address Organization Details Last Updated DateTime 5 160.02 cm 38.6 kg/m2 91398.1 4 g 96.3 [degF] 64 /min 98 % 98 % 126 mm[Hg] 78 mm[Hg] Lacey Rodas RN [place] [facility] 16:47:42 Social History Question Answer Notes LastModified by Organizat ion Details LastModified Time Tobacco Smoking Status Former Smoker Not Available [employer] 09/18/2022 18:19:41 Do You Have An Advance Directive? No [id number] Information not available 09/18/2022 What Is Your Level Of Alcohol Consumption? None [id number] Information not available 09/18/2022 Are You Blind Or Do You Have Difficulty Seeing? No [id number] Information not available 09/18/2022 What Is Your Level Of Caffeine Consumption? Heavy [id number] Information not available 09/18/2022 How Much Tobacco Do You Chew? None [id number] Information not available 09/18/2022 In The 14 Days Before Symptom Onset, Have You Had Close Contact With A Laboratory-confir med COVID-19 While That Case Was Ill? No [id number] Information not available 09/18/2022 In The 14 Days Before Symptom Onset, Have You Had Close Contact With A Person Who Is Under Investigation For COVID-19 While That Person Was Ill? No [id number] Information not available 09/18/2022 Are You Deaf Or Do You Have Serious Difficulty Hearing? No [id number] Information not available 09/18/2022 What Type Of Diet Are You Following? REGULAR MIGRATION.[id number] 7238 Information not available 09/18/2022 Which Illicit Or Recreational Drugs Have You Used? None MIGRATION.189302 4368 Information not available 09/18/2022 Do You Or Have You Ever Used E-cigarettes Or Vape? 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 No MIGRATION.956632 5200 Information not available 09/18/2022 What Was The Date Of Your Most Recent Tobacco Screening? 06/24/2023 Information not available 06/24/2023 What Is Your Relationship Status? MIGRATION.149846 1416 Information not available 09/18/2022 Do You Use Your Seat Belt Or Car Seat Routinely? Yes MIGRATION.017535 4521 Information not available 09/18/2022 Do You Have Smoke And Carbon Monoxide Detectors In Your Home? Yes MIGRATION.756820 9441 Information not available 09/18/2022 At What Age Did You Start Smoking Tobacco? 15 MIGRATION.070230 6426 Information not available 09/18/2022 Do You Or Have You Ever Used Smokeless Tobacco? Never Used Smokeless Tobacco MIGRATION.567603 6944 Information not available 09/18/2022 How Much Tobacco Do You Smoke? 0.5 PPD MIGRATION.810914 9409 Information not available 09/18/2022 Do You Feel Stressed (tense, Restless, Nervous, Or Anxious, Or Unable To Sleep At Night)? EN39975-3 MIGRATION.603059 2703 Information not available 09/18/2022 Do You Use Any Illicit Or Recreational Drugs? No MIGRATION.768309 3523 Information not available 09/18/2022 Do You Use Sunscreen Routinely? Yes MIGRATION.283005 0218 Information not available 09/18/2022 Has Tobacco Cessation Counseling Been Provided? No MIGRATION.957374 9760 Information not available 09/18/2022 How Many Years Have You Smoked Tobacco? 17 MIGRATION.180526 7991 Information not available 09/18/2022 Have You Recently Traveled Abroad? No MIGRATION.634199 0451 Information not available 09/18/2022 Do You Or Have You Ever Used Any Other Forms Of Tobacco Or Nicotine? No MIGRATION.030676 9002 Information not available 09/18/2022 Sex: Unknown Functional Status Question Answer Note LastModified by Organizat ion Details LastModified Time Do you have difficulty walking or climbing stairs? No MIGRATION.46871273 26 Information not available 09/18/2022 Are you able to walk? YESWOREST MIGRATION.98925870 26 Information not available 09/18/2022 Do you have difficulty doing errands alone? No MIGRATION.03419028 26 Information not available 09/18/2022 Are you able to care for yourself? Yes MIGRATION.23577438 26 Information not available 09/18/2022 Do you have difficulty dressing or bathing? No MIGRATION.55789035 26 Information not available 09/18/2022 What is your exercise level? Occasional MIGRATION.57437057 26 Information not available 09/18/2022 Mental Status Question Answer Note LastModified by Organizat ion Details LastModified Time Do you have difficulty concentrating, remembering or making decisions? No MIGRATION.327394078 6 Information not available 09/18/2022 Family History Relationship Description Onset Age of this Age Resolved Age Notes LastModified by Organization Details LastModified Time Father Diabetes mellitus MIGRATION.954 [id number] Not available 09/18/2022 18:19:49 Father Family history of malignant neoplasm MIGRATION.519 3862742 Not available 09/18/2022 18:19:49 Father Malignant neoplasm of urinary bladder MIGRATION.333 7894034 Not available 09/18/2022 18:19:49 Father History of urinary stone MIGRATION.320 7474888 Not available 09/18/2022 18:19:49 Father Mental disorder MIGRATION.896 8165780 Not available 09/18/2022 18:19:49 Mother Family history of malignant neoplasm MIGRATION.217 2234479 Not available 09/18/2022 18:19:49 Mother Mental disorder MIGRATION.993 3830321 Not available 09/18/2022 18:19:49 Sister Mental disorder Depres juanito, anxiet y MIGRATION.299 8134511 Not available 09/18/2022 18:19:49 Sister Disorder of gallbladder MIGRATION.090 9404555 Not available 09/18/2022 18:19:49 Sister Schizophreni a MIGRATION.950 7128026 Not available 09/18/2022 18:19:49 Notes:Breast cancer? Paterna l grandmother (didn't talk about it, not sure if that was her dx) Medical History Condition Response ARTHRITIS Y OBESITY Y ANXIETY DISORDER Y AUTISM SPECTRUM DISORDER (ASD) Y SLEEP APNEA Y SKIN PROBLEMS Y DEPRESSION (INCLUDING POST ) Y BOWEL PROBLEMS Y BACK / NECK PROBLEMS Y Gynecological History Statement/Question Response Abnormal Pap N Flow Heavy Date of LMP 11/22/2020 Dislike of Light during Menstrual Headac he N Menses Monthly Y Date of Last Pap Duration of Flow (days) 6 Current Control Method IUD Breast Problems none Obstetrics History GPAL:G 1 P 1 0 0 1 Type Value Full Term 1 Living 1 Total 1 Immunizations Vaccine Type Date Status Note Provider Nam e and Address Organization Details Recorded Time SARS-COV-2 (COVID-19) vaccine, UNSPECIFIED completed Not Available [facility] 09/18/2022 18:22:12 Influenza, split virus, quadrivalent, PF 2 completed Not Available [facility] 09/18/2022 18:22:12 Influenza, split virus, quadrivalent, PF 7 completed Not Available [facility] 09/18/2022 18:22:12 COVID-19, mRNA, LNP-S, PF, 30 mcg/0.3 mL dose 1 completed Selma Durbin APRN [address], [place], [address], [facility] 06/30/2024 13:49:18 COVID-19, mRNA, LNP-S, PF, 30 mcg/0.3 mL dose 1 completed Selma Durbin APRN [address], [address], [place], [address], [facility] 06/30/2024 13:49:18 Influenza, split virus, quadrivalent, PF 0 completed Selma Durbin APRN [address], [place], [address], [facility] 06/30/2024 13:49:18 Past Encounters Encounter ID Performer Location Encounter Start Date Encounter Closed Date Diagnosis/Indication Diagnosis SNOMED-CT Code Diagnosis ICD10 Code Diagnosis Note [id number] [facility] [place] [address] [place] [address] 10/06/2020 00:00:00 10/06/2020 21:27:41 [id number] [facility] [place] [address] [place] [address] 11/24/2020 00:00:00 11/24/2020 13:30:26 [id number] [facility] [place] [address] [place] [address] 12/12/2020 00:00:00 12/12/2020 16:36:43 [id number] [facility] [place] [address] [place] [address] 01/09/2021 00:00:00 01/09/2021 11:17:40 [id number] _ATHENA_M IGRATION_ DEFAULT_1 _1 , 02/14/2021 00:00:00 02/14/2021 11:13:01 [id number] [facility] [place] [address] [facility] [place] [address] 02/21/2021 00:00:00 02/21/2021 11:43:16 [id number] _ATHENA_M IGRATION_ DEFAULT_1 _1 , 04/18/2021 00:00:00 04/18/2021 14:43:00 [id number] [facility] [place] [address] [place] [address] 06/26/2021 00:00:00 07/18/2021 09:38:56 [id number] [facility] [place] [address] [facility] [address] [place] [address] 08/01/2021 00:00:00 08/01/2021 10:11:42 [id number] [facility] [place] [address] [place] [address] 11/14/2021 00:00:00 11/14/2021 17:39:21 [id number] [facility] [place] [address] [facility] [address] [place] [address] 01/17/2022 00:00:00 01/17/2022 17:30:33 [id number] [facility] [place] [address] [facility] [address] [place] [address] 04/02/2022 00:00:00 04/02/2022 14:09:29 [id number] [facility] [place] [address] [facility] [address] [place] [address] 04/23/2022 00:00:00 04/23/2022 19:27:51 [id number] [facility] [place] [address] [facility] [address] [place] [address] 04/30/2022 00:00:00 04/30/2022 12:40:19 [id number] [facility] Primary [facility] [address] [facility] [address] [place] [address] 06/25/2022 00:00:00 06/25/2022 09:02:49 [id number] [facility] [place] [address] [place] [address] 07/16/2022 00:00:00 07/16/2022 09:43:39 [id number] Kaden Duque MD [facility] [place] 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 Sterile technique standard protocol injected 1 cc xylocaine 1 cc Kenalog into her CMC joint on the right. She can get a thumb a form protective brace as well she can avoid heavy pinch against the thumb and other activities that bother the thumb and we will see her back if worsening of symptoms she may require CMC arthroplas ty [id number] Marycruz Fernández MD [facility] Primary [address] [place] [address] 02/24/2023 12:28:56 02/24/2023 12:57:07 Sleep apnea 55006864 G47.30 snoring, apnea, excessive daytime somnolence Insomnia 877791896 G47.0 0 sleep hygeinetra zodone 50 mg qhs prn insomniado not take before driving/wo rkinggive 8 hours between taking medication and driving/op erating heavy machinaryr eviewed potential for serotonin syndrome, will use low dose and prnd/c and be seen if any s/s serotonin syndrome Decreased hearing 931669 001 H91.93 Degenerati on of lumbosacral intervertebral disc 12067146 M51.37 Chronic diarrhea 8396589 09 K52.9 GI referral given [id number] SUNG Marcelo [facility] Primary [facility] [place] [address] [place] [address] 02/26/2023 15:57:44 02/26/2023 16:22:05 [id number] Debi Lee, [facility] Primary Care [place] [address] [place] [address] 03/25/2023 10:49:17 03/25/2023 11:33:36 Sleep apnea 79956205 G47.30 snoring, apnea, excessive daytime somnolence Home sleep study referral reprinted for pt. Insomnia 827317634 G47.0 0 Improvingr eviewed good sleep hygienetra zodone 50 mg qhs prn insomniado not take before driving/wo rkinggive 8 hours between taking medication and driving/op erating heavy machinaryr eviewed potential for serotonin syndrome, will use low dose and prnd/c and be seen if any s/s serotonin syndrome Decreased hearing 983738 001 H91.93 No change since last visit.Pt has not received call to schedule appt with audiology. Referral reprinted. Degenerati on of lumbosacral intervertebral disc 94920333 M51.37 M25.551 ChronicNot improved since last visit.Will refer to physical therapy to help with muscle strength pending pain mgmt appt. Chronic diarrhea 1441600 09 K52.9 GI referral given last visit. Pt has upcoming appt. [id number] Phoebe Casas NP [facility] [place] [address] [place] [address] 06/24/2023 11:39:03 06/24/2023 12:06:50 Pain in right hand 6280525536 93765 M79.355 [id number] Marycruz Fernández MD [facility] Primary Care [place] [address] [place] [address] 09/03/2023 09:28:46 09/03/2023 11:20:07 Acute urticaria 221793767 L50.9 recurrent highs and dermatogra phia [id number] Joss Mills MD [facility] [place] [address] [place] [address] 11/25/2023 09:36:21 11/25/2023 10:22:40 Pain of left hand 4763830884 82632 M79.225 [id number] ELISABETH Mccollum [facility] Primary Care [place] [address] [facility] [address] [facility] [place] [address] 02/11/2024 11:47:18 02/11/2024 12:11:29 Adult health examination 489949729 Z00.00 Z00.01 Anxiety 85653546 F41.9 RENATE-7 (04/10). Patient is doing well on current mediation regimen, no concerns at this time. Patient to continue following Dr. Mandujano , psych. Degenerati on of lumbosacral intervertebral disc 71603726 M51.37 M25.551 Patient continues to follow Dr. Roberts with pain management . Renewal of prescription 840176969 Z76.0 Screening for malignant neoplasm of breast 392998524 Z12.39 Bipolar disorder 0363419 4 F31.9 Patient is doing well on current mediation regimen, no concerns at this time. Patient to continue following Dr. Mandujano , psych. Depressive disorder 3548 9007 F32.A Patient is doing well on current mediation regimen, no concerns at this time. Patient to continue following Dr. Mandujano , psych. Insomnia 769354711 G47.0 0 Patient is doing well on current dose. Will continue to refill. Sleep apnea 84336154 G47 .30 patient had home sleep study completed on 05/06/23 that was not consistent with sleep apnea. Additional testing was recommende d however, patient did not continue with testing. Decreased hearing 611206 001 H91.93 Patient denies changes since last visit. Patient has not followed with audiology. Hepatitis C screening 39 3262165 Z11.59 [id number] LAYLA Stone [facility] [place] [address] [place] [address] 03/08/2024 09:46:56 03/08/2024 10:35:53 Pain of left hand 2899898338 32937 M79.642 Pain in right hand 14214 06859 15612 M79.641 Osteoarthr osis of the carpometacarpal joint of the thumb 53611591 M18.9 Bilateral thumb CMC arthrosis [id number] ELISABETH Mccollum [facility] Primary Care [place] [address] [facility] [address] [place] [address] 04/21/2024 12:14:23 04/21/2024 12:45:09 [id number] Selma Durbin APRN [facility] Primary Care [place] [address] [facility] [address] [place] [address] 07/28/2024 16:38:58 07/28/2024 17:36:58 Screening mammography 90970101 Z12.31 Health Concerns Section Related Observation LastModified by Organization Detai ls LastModified Time None Recorded Concern Status LastModified by Organization Details LastModified Time None Recorded Advance Directives Directive N: Payers Encounter Date Sequence Insurance Name Policy Number Policy Hoff Covered Member ID Hoff Member ID Guarantor Name 11/25/2023 1 [employer] [address] [place] [id number] Ar[address] L Matthias 02/11/2024 1 [place] [id number] [place] [id number] Arleth L Matthias 03/08/2024 1 [place] [address] [place] [id number] Arleth L [place] 04/21/2024 1 [place] [address] [place] [id number] Arleth L [place] 07/28/2024 1 *SELF PAY* Am kanika L Matthias Notes Date Note Type Note Provider Name and Address Organization Details Recorded Time 02/11/2024 text/html Patient is a 38 year old female that presents to the office for annual wellness. Patient is doing well on current medications. Patient denies all concerns at this time. Patient denies chest pain and shortness of breath, nausea vomiting and diarrhea. Patient continues to follow up with pain management and psych. labs-orderedmammog utc-mdfvdhoQsv-kox linesCovid-decline sTdap-declinesWWE- Dr. Guerrero at [facility] ELISABETH Mccollum [address] [facility] [facility] [address], [place], [address], [place] [employer] 02/11/2024 12:33:44 03/08/2024 text/html The patient returns with bilateral basilar thumb joint pain. She was last seen by Dr. Mills 3 months ago she had bilateral thumb CMC injections this worked very well for her. She uses topical anti-inflammatory medication as well as wears braces. Previous x-rays of the left side showed moderate degenerative changes in the left thumb CMC we are getting new x-rays of the right side today. She states she has aching pain worse with activity particularly pinching or gripping against resistance she can not go better daily activities she would like because of the aching pain she has positive grind test bilateral thumb joints in the CMC regions her pain has flared up again she would like both thumbs injected again today. LAYLA Stone [address], [place], [address], [employer] 03/08/2024 11:58:59 07/28/2024 text/html Arleth presents today to discuss weight loss. She states that she is in poor health. Medications reviewed. She states that she has issues with sleeping and is on trazodone. She states she sees psychiatry for her psych medications. Selma Durbin APRN [address], [facility] [address], [place], [address], [employer] [facility] [employer] 07/28/2024 17:17:56 OBGyn Episode No OBEpisode recorded.
--- OUTSIDE RECORDS SUMMARY | 2024-10-16 01:11 | XMS_ITS | Data Portability ---
Author Organization [place] - [facility], [employer] Address [address] [place] [address] Care Team Providers Care Merchandise Worker Name Role Phone DILCIA PA OTHER Assessment Encounter Date Assessment Date Assessment LastModified by Organization Details LastModified Time 09/06/2022 09/06/2022 Medication Changes Caplyta 42 mg qD samples given gypsy obtained. records requested. Counseled usage of medication. Discussed the purpose of the medication, the classification of the medication. Counseled on SE, AR, administration. Counseled on risks, benefits, plan, outcome of medication. labs obtained to check levels. Signs and symptoms of when to seek further care reviewed with patient/caregiver /family/facility staff. Patient to follow up with primary care provider or return to clinic for any worsening signs and symptoms. Always present to ER or Urgent Care with any progression of/alarming symptoms, significant changes in symptoms or any concerning or urgent matters. Patient/caregiver /family/facility staff verbalized agreement and understanding of treatment plan. F/U 2 weeks, sooner if needed My total encounter time was 75 minutes which was spent in the activities documented in the note. This includes time spent prior to the visit, performing a medically appropriate examination with evaluation, and after the visit in direct care of the patient (history and exam; ordering prescriptions/lab s/imaging/home health/therapy/sp ecialists; communicating results to patient and/or other relative individuals; counseling/educat ing patient; documenting clinical information in patient s chart; coordination of care for the patient). This time does not include time spent in any separately reportable services. [email or web address] Not available 09/07/2022 01:46:50 09/19/2022 09/19/2022 Medication Changes Arleth noted does not work and she is the only one who is working steadily. 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 She is getting minimal sleep. Her therapist had contacted this office with concerns of during therapy session she was falling asleep and they had to have her take a nap because she could not function before she could leave. She was educated on needing at least 7-9 hours sleep per night. At first reported nothing is bothering her sleeping, she has trouble sleeping but then notes of needing a fan or something similar and won't allow such usage. She was educated on sleep deficiency is linked to many chronic health problems, including heart disease, kidney disease, high blood pressure, diabetes, stroke, obesity, and depression. Sleep deficiency is also linked to a higher chance of injury in adults, teens, and children. She v/u. Further added that short-term problems: Lack of alertness. Even missing as little as 1.5 hours can have an impact on how you feel. Excessive daytime sleepiness. It can make you very sleepy and tired during the day. Impaired memory. Lack of sleep can affect your ability to think, remember and process information. Relationship stress. It can make you feel [place] and you can become more likely to have conflicts with others. Quality of life. You may become less likely to participate in normal daily activities or to exercise. Greater likelihood for car accidents. Drowsy driving accounts for thousands of crashes, injuries and fatalities each year, according to the National Highway Traffic Safety Administration. longterm can lead to serious health problems. Some of the most serious potential problems associated with chronic sleep deprivation are high blood pressure, diabetes, heart attack, heart failure or stroke. Other potential problems include obesity, depression, reduced immune system function and lower sex drive. Chronic sleep deprivation can even affect your appearance. Over time, it can lead to premature wrinkling and dark circles under your eyes. There s also a link between lack of sleep and an increase in the amount of the stress hormone cortisol in your body. Cortisol can break down collagen, the protein that keeps skin smooth. In other words, a lack of sleep could mean more wrinkles. Despite notating she is good in relationship she then did mention of being upset over taking their savings and losing it. This adds to stress. Counseled Arleth on empowering self for awareness, both individually and collectively, that women have the ability to be owners of their own actions, to take action and, ultimately, to lead her life. Counseled on women s sense of self-worth; their right to have and to determine choices; their right to have access to opportunities and resources; their right to have power to control their own lives, both within and outside the home; and their ability to influence the direction of social change to create a more just social and economic order, nationally and internationally. Counseled Arleth that no medication changes are being made at this time because no amount of medication is going to have an effect of change until correcting the primary problem of sleep deficiency. She v/u. Counseled to contact therapist to switch appointment to afternoon. Strategies and modalities discussed about being successful with ensuring sleep. Signs and symptoms of when to seek further care reviewed with patient/caregiver /family/facility staff. Patient to follow up with primary care provider or return to clinic for any worsening signs and symptoms. Always present to ER or Urgent Care with any progression of/alarming symptoms, significant changes in symptoms or any concerning or urgent matters. Patient/caregiver /family/facility staff verbalized agreement and understanding of treatment plan. F/U 4 weeks, sooner if needed My total encounter time was 60 minutes which was spent in the activities documented in the note. This includes time spent prior to the visit, performing a medically appropriate examination with evaluation, and after the visit in direct care of the patient (history and exam; ordering prescriptions/lab s/imaging/home health/therapy/sp ecialists; communicating results to patient and/or other relative individuals; counseling/educat ing patient; documenting clinical information in patient s chart; coordination of care for the patient). This time does not include time spent in any separately reportable services. [email or web address] Not available 09/20/2022 09:09:31 Plan of Treatment Reminders Order Date Submit Date Provider Last Modified By Organization Details Last Modified Time Details Appointments None recorded. Lab lithium, serum 2022 023 [facility], [address] [place], [address], 3 11:07:09 CBC w/ auto diff 2022 023 [facility], [address] [place], [address], 3 11:07:08 hepatitis C virus Ab, serum 2022 023 [facility] [employer] [facility], [address] [place], [address], 11:07:09 Referral None recorded. Procedures None recorded. Surgeries None recorded. Imaging None recorded. Medication Orders Caplyta 42 mg capsule 2022 023 [email or web address] [id number], [address], [place], [id number], 17:11:20 Patient TargetsNo targets recorded. Patient Instructions Encounter Date Encounter Id Patient Instructions Last Modified By Organization Details Last Modified Time 09/06/2022 [id number] bipolar disorder : care instructions Not available 09/07/2022 01:47:09 Reason for Referral None Reported. Results Created Date Observation Date Name Description Value Unit Range Abnormal Flag Note LastModifiedBy Organization Detail LastModifiedTime 09/06/1909/07/2022 CBC (INCL UDES DIFF/ PLT) white blood cell count 5.9 thous and/u L 3.8-10 .8 normal Not Available [facility] [address] [address] [place], [address], 09/07/2022 11:14:48 09/06/19 23 09/07/2022 CBC (INCL UDES DIFF/ PLT) red blood cell count 3.96 heladio on/uL 3.80-5 .10 normal Not Available [employer] [address] [address] [place], [address], 09/07/2022 11:14:48 09/06/19 23 09/07/2022 CBC (INCL UDES DIFF/ PLT) hemoglobin 12.4 g/dL 11.7-1 5.5 normal Not Available [employer] [address], [address], 09/07/2022 11:14:48 09/06/19 23 09/07/2022 CBC (INCL UDES DIFF/ PLT) hematocrit 38.0 % 35.0-4 5.0 normal Not Available [address], [address], 09/07/2022 11:14:48 09/06/19 23 09/07/2022 CBC (INCL UDES DIFF/ PLT) MCV 96.0 fL 80.0-1 00.0 normal Not Available [address], [address], 09/07/2022 11:14:48 09/06/19 23 09/07/2022 CBC (INCL UDES DIFF/ PLT) MCH 31.3 pg 27.0-3 3.0 normal Not Available [address], [address], 09/07/2022 11:14:48 09/06/19 23 09/07/2022 CBC (INCL UDES DIFF/ PLT) MCHC 32.6 g/dL 32.0-3 6.0 normal Not Available [address], [address], 09/07/2022 11:14:48 09/06/19 23 09/07/2022 CBC (INCL UDES DIFF/ PLT) RDW 13.0 % 11.0-1 5.0 normal Not Available [address], [address], 09/07/2022 11:14:48 09/06/19 23 09/07/2022 CBC (INCL UDES DIFF/ PLT) platelet count 202 thous and/u L 140-40 0 normal Not Available [address], [address], 09/07/2022 11:14:48 09/06/19 23 09/07/2022 CBC (INCL UDES DIFF/ PLT) MPV 12.3 fL 7.5-12 .5 normal Not Available [address], [address], 09/07/2022 11:14:48 09/06/19 23 09/07/2022 CBC (INCL UDES DIFF/ PLT) absolute neutrophils 3168 cells /uL 1500-7 800 normal Not Available [address], [address], 09/07/2022 11:14:48 09/06/19 23 09/07/2022 CBC (INCL UDES DIFF/ PLT) absolute lymphocytes 2000 cells /uL 850-39 00 normal Not Available [address], [address], 09/07/2022 11:14:48 09/06/19 23 09/07/2022 CBC (INCL UDES DIFF/ PLT) absolute monocytes 496 cells /uL 200-95 0 normal Not Available [address], [address], 09/07/2022 11:14:48 09/06/19 23 09/07/2022 CBC (INCL UDES DIFF/ PLT) absolute eosinophils 177 cells /uL 15-500 normal Not Available [address], [address], 09/07/2022 11:14:48 09/06/19 23 09/07/2022 CBC (INCL UDES DIFF/ PLT) absolute basophils 59 cells /uL 0-200 normal Not Available [address], [address], 09/07/2022 11:14:48 09/06/19 23 09/07/2022 CBC (INCL UDES DIFF/ PLT) neutrophils 53.7 % normal Not Available [address], [address], 09/07/2022 11:14:48 09/06/19 23 09/07/2022 CBC (INCL UDES DIFF/ PLT) lymphocytes 33.9 % normal Not Available [address] [place], [address], 09/07/2022 11:14:48 09/06/19 23 09/07/2022 CBC (INCL UDES DIFF/ PLT) monocytes 8.4 % normal Not Available [facility] [address] [address] [place], [address], 09/07/2022 11:14:48 09/06/19 23 09/07/2022 CBC (INCL UDES DIFF/ PLT) eosinophils 3.0 % normal Not Available [facility] [address] [address] [place], [address], 09/07/2022 11:14:48 09/06/19 23 09/07/2022 CBC (INCL UDES DIFF/ PLT) basophils 1.0 % normal Not Available [facility] [address], [address], 09/07/2022 11:14:48 09/06/19 23 09/07/2022 HEPAT ITIS C AB W/REF L TO HCV RNA, QN, PCR (REFL ) hepatitis C antibody (refl) NON-RE ACTIVE non-re active normal Our recor ds indic ate that you have order ed a clien t custo m refle x order code. Only the initi al test was perfo rmed becau se we do not have a clien t custo m refle x testi ng autho rizat ion reque st form on file for you. Pleas e conta ct a clien t servi ce repre senta tive if you would like addit ional testi ng done on this patie nt or conta ct your sales repre senta tive to obtai n a clien t custo m refle x testi ng autho rizat ion reque st form. Not Available [facility] [address] [address] [place], [address], 09/07/2022 11:07:09 09/06/19 23 09/07/2022 HEPAT ITIS C AB W/REF L TO HCV RNA, QN, PCR (REFL ) index <0.02 <1.00 normal HCV antib fred was non-r eacti ve. There is no labor atory evide nce of HCV infec tion. In most cases , no furth er actio n is requi red. Howev er, if recen t HCV expos ure is suspe cted, a test for HCV RNA (test code 95258 ) is sugge sted. For addit ional infor jasper acevedo pleas e refer to http: //[facility] leisa acevedo.que stdia gnost ics.c om/fa q/FAQ 22v1 (This link is being provi ded for infor jasper nal/ educa sekou l purpo ses only. ) Not Available [facility] [address] [place] [address], [address], 09/07/2022 11:07:09 09/06/19 23 09/07/2022 LITHI UM lithium 0.9 mmol/ L 0.6-1. 2 normal Not Available [address], [address], 09/07/2022 12:03:28 Result Notes None recorded. Problems Name Problem SNOMED Code Status Onset Date Resolution Date Notes Provider Name and Address Organization Details Recorded Time Bipolar I disorder [id number] Active 023 Not Available [facility] 3 04:05:31 Screening for disorder Active 023 Not Available [facility] 3 04:05:31 Notes:Some problems listed i n Document: #[id number] could not be added to this patient's chart. Please review this document and add these problems to the patient's chart manually as needed. Problem Notes None recorded. Procedures Surgical History Date Name Laterality Status Provider Name and Address Organization Details Recorded Time 01/18/20 22 Date of Last Pap Smear completed [facility] 09/06/2022 10:21:08 NeuroStimulator completed [facility] 09/06/2022 10:18:54 lumbar microdiscectomy completed [facility] 09/06/2022 10:19:15 section completed [facility] 09/06/2022 10:19:46 Imaging Results None recorded. Procedure Notes None recorded. Medical Equipment None Reported. Allergies No known drug allergies Medications Name Sig Start Date Stop Date Status Note LastModified by Organization Details LastModified Time meloxicam 15 mg tablet 01/25 completed Not Available Not Available Not Available naltrexone 50 mg tablet TAKE 1 TABLET BY MOUTH EVERY DAY 01/25 completed Not Available Not Available Not Available rizatriptan 10 mg tablet TAKE 1 TABLET BY MOUTH AT ONSET OF SYMPTOMS. OK TO REPEAT DOSE EVERY 2 HOURS FOR 2 DOSES. DO NOT EXCEED 3 TABLETS IN 24 HOURS. 01/25 completed Not Available Not Available Not Available propranolol ER 60 mg capsule,24 hr,extended release TAKE 1 CAPSULE BY MOUTH EVERY DAY 01/25 completed Not Available Not Available Not Available sertraline 100 mg tablet TAKE 2 TABLETS BY MOUTH EVERY DAY active Not Available Not Available No t Available omeprazole 40 mg capsule,del ayed release TAKE 1 CAPSULE BY MOUTH EVERY DAY 01/25 completed Not Available Not Available Not Available lithium carbonate ER 450 mg tablet,exte nded release TAKE 1 TABLET BY MOUTH TWICE DAILY 01/25 completed Not Available Not Available Not Available gabapentin 800 mg tablet TAKE 1 TABLET BY MOUTH THREE TIMES DAILY 01/25 completed Not Available Not Available Not Available baclofen 10 mg tablet TAKE 1 TABLET BY MOUTH FOUR TIMES DAILY NEEDED 01/25 completed Not Available Not Available Not Available cephalexin 500 mg capsule TAKE 1 CAPSULE BY MOUTH EVERY 12 HOURS FOR 7 DAYS 09/06 completed Not Available Not Available Not Available diclofenac sodium 75 mg tablet,neisha yed release TAKE 1 TABLET BY MOUTH TWICE DAILY NEEDED FOR PAIN 11/06 completed Not Available Not Available Not Available ziprasidone 40 mg capsule TAKE ONE CAPSULE BY MOUTH TWICE DAILY 09/19 completed Not Available Not Available Not Available methylpredn isolone 4 mg tablets in a dose pack FOLLOW PACKAGE DIRECTION S 09/19 completed Not Available Not Available Not Available lamotrigine 100 mg tablet TAKE 1 AND 1/2 TABLETS BY MOUTH TWICE DAILY 01/25 completed Not Available Not Available Not Available bupropion HCl XL 300 mg 24 hr tablet, extended release TAKE 1 TABLET BY MOUTH EVERY DAY 07/08 /2023 completed Not Available Not Available Not Available Ubrelvy 100 mg tablet TAKE 1 TABLET BY MOUTH AT ONSET OF SYMPTOMS. MAY REPEAT IN 2 HOURS FOR 1 DOSE. DO NOT EXCEED 200 MG IN 24 HOURS 01/25 completed Not Available Not Available Not Available Caplyta 42 mg capsule 01/25 completed Not Available Not Available Not Available BinaxNOW COVID-19 Ag Self Test kit TEST DIRECTED TODAY 09/06 completed Not Available Not Available Not Available Vitals Date Recorded Body height Body mass index (BMI) Body weight Oxygen saturation Oxygen saturation in Arterial blood by Pulse oximetry Heart rate Respiratory rate Body temperature Pain severity - 0-10 verbal numeric rating [Score] - Reported Systolic blood pressure Diastolic blood pressure Provider Name and Address Organization Details Last Updated DateTime 3 160.02 cm 44.3 kg/m2 178889. 81 g 100 % 100 % 60 /min 20 /min 97.5 [degF] 4 129 mm[Hg] 77 mm[Hg] Yin España [facility] 3 10:04:56 Date Recorded Body height Body mass index (BMI) Body weight Heart rate Respiratory rate Oxygen saturation Oxygen saturation in Arterial blood by Pulse oximetry Body temperature Pain severity - 0-10 verbal numeric rating [Score] - Reported Systolic blood pressure Diastolic blood pressure Provider Name and Address Organization Details Last Updated DateTime 3 160.02 cm 43.9 kg/m2 543615. 19 g 73 /min 20 /min 99 % 99 % 98.9 [degF] 5 134 mm[Hg] 72 mm[Hg] Yin España [facility] 3 15:41:29 Social History Question Answer Notes LastModified by Organizat ion Details LastModified Time Tobacco Smoking Status Former Smoker Yin España [facility] 09/06/2022 10:15:02 Do You Have An Advance Directive? No [email or web address] Information not available 09/06/2022 What Is Your Level Of Alcohol Consumption? None [email or web address] Information not available 09/06/2022 Are You Currently Sexually Active With Anyone Who Has Traveled (within The Last 12 Weeks) To A Zika-affected Area? No [email or web address] Information not available 09/06/2022 Do You Wear A Helmet When Biking? No Information not available 09/06/2022 Are You Blind Or Do You Have Difficulty Seeing? No [email or web address] Information not available 09/06/2022 Is Blood Transfusion Acceptable In An Emergency? Yes [email or web address] Information not available 09/06/2022 What Is Your Level Of Caffeine Consumption? Heavy [email or web address] Information not available 09/06/2022 What Type Of Environmental Geologist Do You Use? None Information not available 09/06/2022 In The 14 Days Before Symptom Onset, Have You Had Close Contact With A Laboratory-confir med COVID-19 While That Case Was Ill? No [email or web address] Information not available 09/06/2022 In The 14 Days Before Symptom Onset, Have You Had Close Contact With A Person Who Is Under Investigation For COVID-19 While That Person Was Ill? No [email or web address] Information not available 09/06/2022 Have You Been To An Area Known To Be High Risk For COVID-19? No [email or web address] Information not available 09/06/2022 Are You Currently Employed? Yes Information not available 09/06/2022 Are You Deaf Or Do You Have Serious Difficulty Hearing? Yes Trouble Hearing Both Information not available 09/06/2022 What Type Of Diet Are You Following? REGULAR [email or web address] Information not available 09/06/2022 Which Illicit Or Recreational Drugs Have You Used? Marijuana [email or web address] Information not available 09/06/2022 Have You Processed Blood Or Body Fluids From An Ebola Virus Disease Patient Without Appropriate PPE? No Information not available 09/06/2022 Do You Reside In Or Have You Traveled To An Area Where Ebola Virus Transmission Is Active? No [email or web address] Information not available 09/06/2022 What Is The Highest Grade Or Level Of School You Have Completed Or The Highest Degree You Have Received? [id number] [email or web address] Information not available 09/06/2022 What Is Your Occupation? [employer] [email or web address] Information not available 09/06/2022 Have There Been Any Changes To Your Family Or Social Situation? No [email or web address] Information no t available 09/06/2022 When Did You Quit Smoking? 6-10yearssinc elastcigarett e [email or web address] Information not available 09/06/2022 Are There Any Guns Present In Your Home? Yes [email or web address] Information not available 09/06/2022 Which Of Your Hands Is Dominant? Right [email or web address] Information not available 09/06/2022 Have You Recently Or Are You Planning To Travel To An Area With Zika Virus? No [email or web address] Information not available 09/06/2022 How Many Years Have You Used Illicit Or Recreational Drugs? 17 [email or web address] Information not available 09/06/2022 Do You Have A Medical Power Of Gang Bore Operator? No [email or web address] Information not available 09/06/2022 What Was The Date Of Your Most Recent Tobacco Screening? 09/06/2022 [email or web address] Information not available 09/06/2022 How Many Children Do You Have? 1 [email or web address] Information not available 09/06/2022 What Is Your Current Pack Years? 10packyears Information not available 09/06/2022 Do You Have Any Pets? Yes Information not available 09/06/2022 Do You Use Protection During Sex? Always Information not available 09/06/2022 What Is Your Relationship Status? Information not available 09/06/2022 Do You Use Your Seat Belt Or Car Seat Routinely? Yes [email or web address] Information not available 09/06/2022 Are You Sexually Active? Yes [email or web address] Information not available 09/06/2022 Do You Have Smoke And Carbon Monoxide Detectors In Your Home? Yes [email or web address] Information not available 09/06/2022 At What Age Did You Start Smoking Tobacco? 15 [email or web address] Information not available 09/06/2022 Are You Passively Exposed To Smoke? Yes [email or web address] Information no t available 09/06/2022 Do You Participate In Social Media? Yes Information not available 09/06/2022 Do You Feel Stressed (tense, Restless, Nervous, Or Anxious, Or Unable To Sleep At Night)? [id number] [email or web address] Information not available 09/06/2022 Do You Use Any Illicit Or Recreational Drugs? Yes [email or web address] Information not available 09/06/2022 Do You Use Sunscreen Routinely? No [email or web address] Information not available 09/06/2022 How Many Years Have You Smoked Tobacco? 12 [email or web address] Information not available 09/06/2022 Have You Recently Traveled Abroad? No Information not available 09/06/2022 Have You Used IV Drugs? No [email or web address] Information not available 09/06/2022 Are You Currently In School? No [email or web address] Information not available 09/06/2022 Do You Have Any Dietary Restrictions? No Information not available 09/06/2022 Do You Or Have You Ever Used Any Other Forms Of Tobacco Or Nicotine? No [email or web address] Information not available 09/06/2022 Sex: Female Functional Status Question Answer Note LastModified by Organizat ion Details LastModified Time Do you have difficulty walking or climbing stairs? No [email or web address] Information not available 09/06/2022 Do you have transportation difficulties? No [email or web address] Information not available 09/06/2022 Are you able to walk? YESWOREST [email or web address] Information not available 09/06/2022 Do you have difficulty doing errands alone? No [email or web address] Information not available 09/06/2022 Are you able to care for yourself? Yes [email or web address] Information not available 09/06/2022 Do you have difficulty dressing or bathing? No [email or web address] Information not available 09/06/2022 What is your exercise level? None [email or web address] Information not available 09/06/2022 Mental Status Question Answer Note LastModified by Organization D etails LastModified Time Do you have difficulty concentrating, remembering or making decisions? Yes [email or web address] Information no t available 09/06/2022 Family History Relationship Description Onset Age of this Age Resolved Age Notes LastModified by Organization Details LastModified Time Father Malignant neoplastic disease [email or web address] Not available 2022 10:07:49 Father Depressive disorder Not available 2022 10:08:00 Father Heart disease [email or web address] Not available 2022 10:08:10 Father Diabetes mellitus [email or web address] Not available 2022 11:05:19 Maternal Grandmother Mental disorder [email or web address] Not available 2022 10:09:30 Mother Abandoned child [email or web address] Not available 08/21 11:05:42 Mother Institutiona lized [email or web address] Not available 08/21 11:07:11 Mother Alcohol abuse [email or web address] Not available 2022 13:58:12 Mother Drug abuse [email or web address] Not availa ble 09/06/2022 13:58:27 Sister Schizophreni a [email or web address] Not available 2022 11:05:50 Sister Substance abuse [email or web address] Not available 08/21 11:06:53 Unspecified Relation Suicide Great Ganndm other, mom side [email or web address] Not available 09/06/2022 11:07:44 Unspecified Relation Suicide Matern al great grandm a [email or web address] Not available 09/06/2022 11:08:15 Brother First degree murder Not available 08/21 11:09:25 Brother In fpc [email or web address] Not avai lable 09/06/2022 11:09:36 Medical History Condition Response Psychiatric Diseases / Disorders Y Anxiety Disorder Y Osteoarthritis Y Bipolar Disorder Y Gastrointestinal Diseases / Disorders Musculoskeletal Diseases / Disorders Y Fractures Y Alcohol / Drug Abuse Y Obstructive Sleep Apnea Y Depression Y Gynecological History Statement/Question Response Date of Last Pap Smear 01/17/2022 Date of Last Mammogram Possibility of ? N Date of LMP 08/16/2022 Obstetrics History GPAL:G 0 P 0 0 0 0 Past Encounters Encounter ID Performer Location Encounter Start Date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
--- OUTSIDE RECORDS SUMMARY | 2024-10-16 01:11 | XMS_ITS | Encounter Summary ---
Author Organization [facility] Healthcare Address [address] [place] [address] Care Team Providers Care Construction Secretary Name Role Phone Marycruz Fernández MD Primary Care Provider + Vinny Dowling DO Unavailable [phone] Nissa Roberts MD Unavailable Juve Guerrero MD Unavailable [phone] Reason for Visit * Reason Onset Date Comments Pre Arrival 05/27/2022 Encounter Details Date Type Department Care Team (Late st Contact Info) Description 05/27/2022 Telephone [facility] [address] [facility] 1st [place] [address] Tammy Peace RN Pre Arrival Social History Tobacco Use Types Packs/Day Years Used Date Smoking Tobacco: Former Cigarettes 0.5 12 2 - 2012 Smokeless Tobacco: Never Alcohol Use Standard Drinks/Week Comments Not Currently 0 (1 standard drink = 0.6 oz pur e alcohol) AUDIT-C Answer Date Recorded Q1: How often do you have a drink containing alc ohol? 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 Author CCM Chronic Pain Care Plan Chronic Care Management On track(2022 9:20 AM CDT) Dianne Wilson, RN Note: Problem: Chronic Pain Goals: 1. Minimize further functional decline 2. Maximize quality of life 3. Control pain Strategies: - Activity/exercise program recommendation - Conservative stepwise pain medicine strategy with multi-disciplinary approach - Recommend healthy lifestyle strategies and compensatory methods as needed Reduce the likelihood of falling Lifestyle On track(2022 9:20 AM CDT) Dianne Wilson, DELIO Note: Below are four things you [...] on stairs Contact your local community or [facility] for information on exercise, fall prevention programs, or options for improving home safety. documented as of this encounter Visit Diagnoses Not on filedocumented in this encounter Additional Health Concerns Infection Onset Date Last Indicated Resolved Time COVID: Suspected 02/28/2023 02/28/2023 02/28/2023 11:36 AM CDT documented as of this encounter Care Teams Construction Secretary Relationship Specialty Start Date End Date Marycruz Fernández MD [address] [place] [address] [address] [place] [address] PCP - General Family Medicine 06/23/20 Vinny Dowling DO [address] [place] [address] Referring Physician Psychiatry 06/23/20 Nissa Roberts MD [address] [place] [address] Anesthesiologist Pain Management 12/31/21 01/27/24 Juve Guerrero MD [address] [place] [address] Consulting Physician Obstetrics and Gynecology 02/05/24 documented as of this encounter
--- OUTSIDE RECORDS SUMMARY | 2024-10-16 01:11 | XMS_ITS | Clinical Summary ---
Author Organization [facility] Address [address] [place] [address] Care Team Providers Care Editor & Co Founder Name Role Phone Marycruz Fernández MD Primary Care Provider + Vinny Dowling DO Unavailable [phone] Juve Guerrero MD Unavailable [phone] Allergies Active Allergy Reactions Criticality Noted Date [...] (six) hours as needed for pain Active zmdxrypc-jynm-V P-entiwew-hrqa (One-A-Day Womens Formula) 18 mg iron-400 mcg-500 [...] 01/19/2018 Overview (01/06/2020): 12/2017 -- Overdose SSRI/Wellbutrin. [facility] transfered to Psych admit Anxiety 05/29/2017 Bipolar disorder 05/29/2017 Encounters Date Type Department Care Team Description 10/13/2024 Orders Only [facility] Health Information Management [address] [place] [address] Scanning, Provider from Last 3 Months Immunizations Immunization Administration Dates Next Due Influenza, Quadrivalent, Spl it, Preservative Free, Intramuscular 05/31/2020,05/29/2017 Surgical History Surgery Date Site/Laterality Comments SECTION 07/21/2013 - 07/20/2014 LUMBAR DISC SURGERY 07/21/2018 - 07/20/2019 SPINAL CORD STIMULATOR IMPLANT 07/21/2020 - 07/20/2021 L eft INTRAUTERINE DEVICE INSERTION paragard Medical History Medical History Date Comments Depression Bipolar disorder (HCC) Substance abuse (HCC) currently uses marijuana gummies every day Alcoholism (HCC) h/o Anxiety Hearing difficulty Ankle swelling Arthritis Muscle pain Loss of coordination Low back pain PONV (postoperative nausea a nd vomiting) Allergic rhinitis GERD (gastroesophageal reflux disease) Migraine S/P insertion of spinal cord stimulator DDD (degenerative disc disease), lumbar Last menstrual period (LMP) < 10 days ago 01/21/2024 Family History Medical History Relation Name Comments Bladder Cancer Father Chronic Pain Father Depression Father Diabetes Father jaw cancer Maternal Grandmother Anxiety disorder Mother Depression Mother Drug abuse Mother jaw cancer Mother Breast cancer Paternal Grandmother Anxiety disorder Sister Chronic Pain Sister Depression Sister Drug abuse Sister Relation Name Status Comments Father Maternal Grandmother Mother Paternal Grandmother Sister Social History Tobacco Use Types Packs/Day Years Used Date Smoking Tobacco: Former Cigarettes 0.5 12 2 - 2012 Smokeless Tobacco: Never Tobacco Cessation:Counseling Given: Not [...] on file Legal Sex Female 8:43 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 Gender Identity Not on file Sexual Orientation Straight 04/25/2020 2: 24 PM CDT 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 Not on file Not on file Not on tatiana e Obstetrics History Para Term AB IAB SAB Ectopic Multiple Livin g Live Births 1 1 1 0 0 1 1 Date Outcome GA Total Labor Labor/2nd/3rd Weight Sex Type Anes PTL Nancy A1 A5 Name Clin 2013 Term CS-Un spec Living Comments First delivery 30 Menarche 8th grade Last Filed Vital Signs Vital Sign Reading [...] 04/02/2024 8:40 AM CDT Plan of Treatment Health Maintenance Due Date Last Done Comments Breast Cancer Screening-Mammogram 1983 Depression Screening 1983 Hepatitis C Screening 1983 DTaP/Tdap/Td Vaccine (1 - Tdap) 1994 Varicella Vaccines (1 of 2 - 13+ 2-dose series) 1996 Hepatitis B Screening 2001 Cervical Cancer Screening 06/23/2021 06/23/2020 Regular Well Visit/Exam 18-64 12/21/2022 12/21/2021 Covid-19 Vaccine (3 - 2023-2 5 season) 2024 10/19/2020, 09/29/2020 Influenza Vaccine (#1) 2024 2, 05/31/2020, 05/29/2017 HPV Vaccines Aged Out No longer eligi ble based on patient's age to complete this topic Pneumococcal vaccine <65 Aged Out No longer eligible based on patient's age to complete this topic Goals Goal Patient Goal Type Associated Problems [...] on stairs Contact your local community or [facility] for information on exercise, fall prevention programs, or options for improving home safety. Medical Devices Implanted Type Area Customer Energy Specialist Device Identifier Shelf Expiration Date Model / Serial / Lot Medtronic Inc [id number] Vectris 5mm 60cm 1x8 Electrode Mri Lead Neurostimulator - [id number] Implanted:Qty: 1 on 08/11/2020 by Nissa Roberts MD at [facility] Lead Left: Thoracic -Lumbar Spine Medtronic Inc 06/01/2023 [id number] / / [id number] Medtronic Inc [id number] Vectris 5mm 60cm 1x8 Electrode Mri Lead Neurostimulator - [id number] Implanted:Qty: 1 on 08/11/2020 by Nissa Roberts MD at [facility] Lead Left: Thoracic -Lumbar Spine Medtronic Inc 06/01/2023 [id number] / / [id number] Medtronic Inc [id number] Vectris 5mm 60cm 1x8 Electrode Trial Lead Neurostimulator - [id number] - [id number] Implanted:Qty: 1 on 07/06/2020 by Nissa Roberts MD at [facility] 4 Spinal Cord Stimulator Medtronic Inc 03/24/2024 [id number] / [id number] / Description:07/12/20 receive d 70% relief from SCS trial Med[employer]onic Inc [id number] Vectris 5mm 60cm 1x8 Electrode Trial Lead Neurostimulator - [id number] - [id number] Implanted:Qty: 1 on 07/06/2020 by Nissa Roberts MD at [facility] 4 Spinal Cord Stimulator Medtronic Inc 06/12/2024 [id number] / [id number] / Copper (Paragard) Iud Uterus Medtronic Inc [id number] Neurostimulator Implantable Chronic Pain Rs2 - [id number] - [id number] Implanted:Qty: 1 on 08/11/2020 by Nissa Roberts MD at [facility] Left: Flank Medtronic Inc 04/09/2021 [id number] / [id number] / Description:[email or web address]. pdf Procedures Procedure Name Priority Date/Time Associated Diagnosis Comments SCAN - OTHER ORDERS 10/13/2024 PAP ONLY Routine 06/23/2020 2:19 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 from Last 3 Months or Most Recently Relevant to Health Maintenance Results * SCAN - OTHER ORDERS (10/13/2024) us Provider Scanning Final Result * Pap Only (06/23/2020 2:19 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) CLINICAL INFORMATION: SCREEN [facility] LMP 05/24/20 [facility] Previous Pap INFORMATION NOT PROVIDED [facility] Prev. Bx INFORMATION NOT PROVIDED [facility] [employer] [facility] SOURCE: Cervix, Endocervix [facility] Pap, specimen adequacy Satisfactory for evaluation. Endocervical/kohler sformation zone component present. [facility] HPV interp Negative for intraepithelial lesion or malignancy. [facility] Disease Management Nurse GABRIEL LYON(ASCP) CT screening location: [place] [address] [address] [place] [address] [facility] Comment [facility] Comment: EXPLANATORY NOTE: The Pap is a screening test for cervical cancer. It is not a diagnostic test and is subject to false negative and false positive results. It is most reliable when a satisfactory sample, regularly obtained, is submitted with relevant clinical findings and history, and when the Pap result is evaluated along with historic and current clinical information. 06/23/2020 2:19 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 06/26/2020 6:34 AM MATCHER OFFBEARER us Juve Guerrero MD LAB CYTOLOGY ORDERABLES Final Result [place] [address] [address] [place] [id number] from Last 3 Months or Most Recently Relevant to Health Maintenance Insurance [employer] Solar OOS [employer] OOS SELMA Chicory OOS Advance Directives For more information, please contact: [phone] * Full Code (Latest Code Status on File) Date Activated Date Inactivated Comments 08/11/2020 4:00 PM 08/11/2020 9:57 PM Care Teams Editor & Co Founder Relationship Specialty Start Date End Date Marycruz Fernández MD [address] [place] [address] PCP - General Family Medicine 06/23/20 Vinny Dowling DO [address] [facility] [address] [place] [address] Referring Physician Psychiatry 06/23/20 Juve Guerrero MD [address] [place] [address] Consulting Physician Obstetrics and Gynecology 02/05/24
--- OUTSIDE RECORDS SUMMARY | 2024-10-16 01:11 | XMS_ITS | Encounter Summary ---
Author Organization [facility] Healthcare Address [address] [place] [address] Care Team Providers Care Waterside Worker Name Role Phone Marycruz Fernández MD Primary Care Provider + Vinny Dowling DO Unavailable [phone] Nissa Rboerts MD Unavailable Juve Guerrero MD Unavailable [phone] Encounter Details Date Type Department Care Team (Late st Contact Info) Description 01/15/2021 Telephone [facility] [address] [facility] 1st [place] [address] Padmaja Solano, DELIO Social History Tobacco Use Types Packs/Day Years Used Date Smoking Tobacco: Former Cigarettes 0.5 12 2 001 - 2013 Smokeless Tobacco: Never Alcohol Use Standard Drinks/Week [...] on file 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 Procedure Date, Time, Location ??? Arrival 15 minutes prior to appointment ??? Discharge transportation is needed ??? Oral intake: [x] Able to eat, drink, and take medications as normal. [] No solid food for 6 hours; No liquids for 3 hours; Take medications with sips of water. ??? Blood thinner: [x] Notify the office immediately if taking a new blood thinner [] Notify the office immediately if blood thinner: was not stopped on date: ??? Lab work [] Lab work is required prior to the procedure. Please arrive 1 hour early to have the following test: [] CBC [] PT/INR ??? Notify the office immediately if: a. In the last 10 days have you had any respiratory symptoms including cough, shortness of breath/trouble breathing, fever, sudden loss of taste or smell, sore throat, or body aches? b. Any antibiotics in the last 7 days? c. Have received a Covid-19 vaccine in the last 2 weeks or plan to receive a Covid-19 vaccine in the next 2 weeks? d. Are currently being tested for Covid-19? e. Have tested positive for Covid-19 within the last 14 days? f. Have had close contact with anyone confirmed or suspected Covid-19 in the past 2 weeks? documented in this encounter Plan of Treatment Not on [...] on stairs Contact your local community or [facility] for information on exercise, fall prevention programs, or options for improving home safety. documented as of this encounter Visit Diagnoses Not on filedocumented in this encounter Additional Health Concerns Infection Onset Date Last Indicated Resolved Time COVID: Suspected 02/28/2023 02/28/2023 02/28/2023 11:36 AM CDT documented as of this encounter Care Teams Waterside Worker Relationship Specialty Start Date End Date Marycruz Fernández MD [address] [place] [address] [address] [place] [address] PCP - General Family Medicine 06/23/20 Vinny Dowling DO [address] [address] Referring Physician Psychiatry 06/23/20 Nissa Roberts MD [address] [facility] [address] [place] [address] Anesthesiologist Pain Management 12/31/21 01/27/24 Juve Guerrero MD [address] [place] [address] [address] [place] [address] Consulting Physician Obstetrics and Gynecology 02/05/24 documented as of this encounter
--- OUTSIDE RECORDS SUMMARY | 2024-10-16 01:11 | XMS_ITS | Encounter Summary ---
Author Organization [facility] Healthcare Address [address] [place] [address] Care Team Providers Care Trans Router Name Role Phone Marycruz Fernández MD Primary Care Provider + Vinny Dowling DO Unavailable [phone] Nissa Roberts MD Unavailable Juve Guerrero MD Unavailable [phone] Reason for Visit * Reason Onset Date Comments Pre Arrival 01/25/2021 Encounter Details Date Type Department Care Team (Late st Contact Info) Description 01/25/2021 Telephone [facility] [address] [facility] 1st [place] [address] Padmaja Solano, DELIO Pre Arrival Social History Tobacco Use Types [...] on file Legal Sex 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 documented as of this encounter Visit Diagnoses Not on filedocumented in this encounter Additional Health Concerns Infection Onset Date Last Indicated Resolved Time COVID: Suspected 02/28/2023 02/28/2023 02/28/2023 11:36 AM CDT documented as of this encounter Care Teams Trans Router Relationship Specialty Start Date End Date Marycruz Fernández MD [address] [place] [address] PCP - General Family Medicine 06/23/20 Vinny Dowling DO [address] [facility] [address] [place] [address] Referring Physician Psychiatry 06/23/20 Nissa Roberts MD [address] [facility] [address] [place] [address] Anesthesiologist Pain Management 12/31/21 01/27/24 Juve Guerrero MD [address] [facility] [address] [place] [address] Consulting Physician Obstetrics and Gynecology 02/05/24 documented as of this encounter
--- OUTSIDE RECORDS SUMMARY | 2024-10-16 01:12 | XMS_ITS ---
Author Organization [facility] Address [facility] [address] [facility] [address] [place] [address] Care Team Providers Care House Mover Name Role Phone Marycruz Fernández MD Primary Care Provider Donna Samayoa Unavailable [phone] REASON FOR VISIT Refill Medications Medication SIG (Take, Route, Fr equency, Duration) Notes Start Date End Date Status Lurasidone HCl 40 MG 1 tablet in the susy brian with food Orally Once a day for 30 days 09/13/2024 Active Social History Sex Assigned At : Social History Observation Description Sex Assigned At Female Encounters En[facility] [address] [facility] [address] [place] [address] 10/13/2024 Donna Sneed Bipolar I disorder F31.9 Assessments Encounter Date Diagnosis (ICD Code) Assessment Notes Treatment Notes Treatment Clinical Notes Section Notes 10/13/2024 Bipolar I disorder (ICD-10 - F31.9) Plan Of Treatment Medication Medication Name Sig Start Date Stop Date Notes Lurasidone HCl 40 MG 1 tablet in the susy brian with food Orally Once a day for 30 days 09/13/2024 Next Appt Details Provider Name:Donna linares, 10/29/2024 11:30:00 AM, [address] [facility] [address], [facility] [address], [place], [address], Progress Notes * RODRIGO THOMPSONDOB:1985 ([age] yo F)Acc No.[id number]:10/13/2024 Patient: RODRIGO FLAHERTY :1985 A ge:39 Y S ex:Female Address:[address] [place] [address], [address] * Refills Refill Lurasidone HCl Tablet, 40 MG, Orally, 30 Tablet, 1 tablet in the evening with food, Once a day, 30 days, Refills=1 * true * Date: Generated for Valerie benitez/Irma/Peggyitting on: 0 10/16/2024 01:12 AM CDT
--- OUTSIDE RECORDS SUMMARY | 2024-10-16 01:12 | XMS_ITS | Clinical Summary ---
Author Organization [facility] Address [address] [facility] [place] [address] Care Team Providers Care Derivatives Trader Name Role Phone Marycruz Fernández MD Primary Care Provider [phone] Source Comments [facility],non-owned Affiliates and Associated Physician Practices is amultiple site organization consisting of ambulatory clinics and hospital sitesin [place], [place], [place] and [place]. This disclosure is being madepursuant to the Care Everywhere program and may not contain all information available regarding this patient. Last updated 18.[facility] Control4 Allergies No known active allergies Medications * Be aware that medications may not be up to date on this document. Alwaysverify current medications with the patient. Medication Sig Dispensed Refills Start Date End Date Status loperamide (IMODIUM) 2 MG capsuleIndications :Diarrhea Take 2 mg by mouth 3 times daily as needed. Indications: Diarrhea Active lithium CR (LITHOBID) 300 MG tablet Take 300 mg by mouth 2 times daily 06/05/2018 Active lamoTRIgine (LAMICTAL) 100 MG tablet Take 150 mg by mouth 2 times daily 06/05/2018 Active gabapentin (NEURONTIN) 300 MG capsule Take 600 mg by mouth 3 times daily 04/20/2018 Active cyclobenzaprine (FLEXERIL) 10 MG tablet Take 10 mg by mouth 3 times daily 05/15/2018 Active naltrexone (REVIA) 50 MG tablet Take 50 mg by mouth once daily 06/04/2018 Active pseudoephedrine (SUDAFED) 60 MG tablet Take 60 mg by mouth 3 times daily as needed for Nasal Congestion Active Multiple Vitamins-Minerals (ALIVE ONCE DAILY WOMENS PO) Take 1 capsule by mouth once daily Active acetaminophen (TYLENOL) 500 MG tablet Take 1,500 mg by mouth 3 times daily Maximum allowable Acetaminophen amount = 4 Grams (4000 mg) / 24 hours. Active Cetirizine-Pseudoe phedrine (ZYRTEC-D PO) Active HYDROcodone-acetam inophen (NORCO) 5-325 MG tablet Take 1-2 tablets by mouth every 4 hours as needed for Pain 30 tablet 08/07/2018 Active gabapentin (NEURONTIN) 600 MG tablet Take 600 mg by mouth 3 times daily 09/11/2018 Active cyclobenzaprine (FLEXERIL) 5 MG tablet Take 10 mg by mouth 3 times daily 07/10/2018 Active pseudoephedrine (SUDAFED) 30 MG tablet Take 30 mg by mouth as needed Active methylPREDNISolone (MEDROL DOSEPAK) 4 MG tabletIndications: Chronic left-sided low back pain with left-sided sciatica Take by mouth as directed 1 Each 09/16/2018 Active Family History Medical History Relation Name Comments Arthritis - Osteo Father Cancer Father bladder Depression Father Diabetes Father Hypertension Father Alcohol abuse Maternal Aunt Alcohol abuse Maternal Grandfather Alcohol abuse Maternal Grandmother Alcohol abuse Maternal Uncle Alcohol abuse Mother Schizophrenia Mother Cancer Paternal Uncle brain cancer Migraine Paternal Uncle Seizures Paternal Uncle Relation Name Status Comments Father Maternal Aunt Maternal Grandfather Maternal Grandmother Maternal Uncle Mother Paternal Uncle Social History Tobacco Use Types Packs/Day Years Used Date Smoking Tobacco: Former Cigarettes 0.3 7 0 07/21/2004 - 07/21/2011 Smokeless Tobacco: Never Tobacco Cessation:Ready to Q uit: Yes; Counseling Given: Yes Alcohol Use Standard Drinks/Week Comments No 0 (1 standard drink = 0.6 oz pur e alcohol) nothing since 02/04 Sex and Gender Information Value Date Recorded Sex Assigned at Not on file Gender Identity Not on file Sexual Orientation Not on file Last Filed Vital Signs Vital Sign Reading Time Taken Comments Blood Pressure 130/81 09/16/2018 10:21 AM STEAM PRESS OPERATOR Pulse 82 09/16/2018 10:21 AM STEAM PRESS OPERATOR Temperature 36.7 C (98.1 F) 09/16/2018 10:21 AM STEAM PRESS OPERATOR Respiratory Rate 20 08/07/2018 9:30 PM STEAM PRESS OPERATOR Oxygen Saturation 100% 09/16/2018 10:21 AM STEAM PRESS OPERATOR Inhaled Oxygen Concentration - - Weight 108.9 kg (240 lb) 09/16/2018 10:21 AM STEAM PRESS OPERATOR Height 160 cm (5' 3 ) 09/16/2018 10:21 AM STEAM PRESS OPERATOR Body Mass Index 42.51 09/16/2018 10:21 AM STEAM PRESS OPERATOR Plan of Treatment Health Maintenance Due Date Last Done Comments LIPID TESTING 1985 MAMMOGRAM 1985 HIV SCREENING 1998 DTAP/TDAP/TD VACCINES (1 - Tdap) 2002 HEPATITIS B VACCINE (1 of 3 - 19+ 3-dose series) 2002 PAP with HPV 2013 COVID-19 VACCINE ( - 2023-2 5 season) 2024 INFLUENZA VACCINE (#1) 2024 DEPRESSION SCREENING 07/21/2024 ZOSTER VACCINE (1 of 2) 2033 HEPATITIS C SCREENING Completed 01/15/2013 HIB VACCINE Aged Out No longer eligi ble based on patient's age to complete this topic HPV VACCINE Aged Out No longer eligi ble based on patient's age to complete this topic MENINGOCOCCAL (Group B) VACC INE SHARED DECISION-MAKING Aged Out No longer eligibl e based on patient's age to complete this topic MENINGOCOCCAL GROUPS A/C/Y/W VACCINE Aged Out No longer eligible b ased on patient's age to complete this topic PNEUMOCOCCAL VACCINE Aged Out No long er eligible based on patient's age to complete this topic Advance Directives * Full Code (Latest Code Status on File) Date Activated Date Inactivated Comments 08/07/2018 8:55 AM 08/07/2018 11:12 PM * FULL RESUSCITATION Date Activated Date Inactivated Comments 12/19/2011 1:44 PM 12/22/2011 3:58 AM Care Teams Derivatives Trader Relationship Specialty Start Date End Date Marycruz Fernández MD [address] [place] [address] [place] [id number] PCP - General 06/10/18
--- OUTSIDE RECORDS SUMMARY | 2024-10-16 01:12 | XMS_ITS ---
Author Organization [facility] Address [facility] [facility] [address] [facility] [address] [place] [address] Care Team Providers Care Magistrate Assistant Name Role Phone Marycruz Fernández MD Primary Care Provider Donna Samayoa Unavailable [phone] REASON FOR VISIT Palestine 300 mg Medications Medication SIG (Take, Route, Frequency, Duration) Notes Start Date End Date Status Palestine Carbonate ER 300 MG 1 tablet Orally twice a day for 30 days 08/23/2024 Active Social History Sex Assigned At : Social History Observation Description Sex Assigned At Female Encounters Encounter Location Date Provider Diagnosis [facility] [place] [id number] [facility] [address] [facility] [address] [place] [address] 09/14/2024 Donna Sneed Bipolar I disorder F31.9 Assessments Encounter Date Diagnosis (ICD Code) Assessment Notes Treatment Notes Treatment Clinical Notes Section Notes 09/14/2024 Bipolar I disorder (ICD-10 - F31.9) Plan Of Treatment Medication Medication Name Sig Start Date Stop Date Notes [place] Carbonate ER 300 MG 1 tablet Ora lly twice a day for 30 days 08/23/2024 Next Appt Details Provider Name:Donna linares, 10/29/2024 11:30:00 AM, [address] [facility] [address], [facility] [address], [place], [address], Progress Notes * RODRIGO THOMPSONDOB:1985 ([age] yo F)Acc No.[id number]:09/14/2024 Patient: RODRIGO FLAHERTY :1985 A ge:39 Y S ex:Female Address:[address] [place] [address], [address] * Refills Refill Palestine Carbonate ER Tablet Extended Release, 300 MG, Orally, 60 Tablet, 1 tablet, twice a day, 30 days, Refills=1 Subjective: * Chief Complaints: * L ithium 300 mg * Medical History: * Surgical History: * Hospitalization/Major Diagno stic Procedure: * Medications: Objective: * Vitals: * Physical Examination: Assessment: * Assessment: 1. B ipolar I disorder - F31.9 Plan: * Treatment: * Procedure Codes: * true * Date: Generated for Valerie benitez/Irma/Nancysmlukas on: 0 10/16/2024 01:11 AM CDT
--- OUTSIDE RECORDS SUMMARY | 2024-10-16 01:12 | XMS_ITS | Clinical Summary ---
Author Organization [facility] Address [address] [place] [address] Care Team Providers Care Nuclear Officer Name Role Phone Unavailable Primary Care Provider Unavailabl e Immunizations Name Administration Dates Next Due PFIZER COVID-19 (ORIGINAL FO RMULATION, PURPLE CAP) mRNA, LNP-S, PF, 30 MCG/0.3 ML DOSE 10/19/2020,09/29/2020 Social History Tobacco Use Types Packs/Day Years Used Date Smoking Tobacco: Never Assessed Comments Unknown Sex and Gender Information Value Date Recorded Sex Assigned at Not on file Legal Sex Female 6:48 PM CDT Gender Identity Not on file Sexual Orientation Not on file Last Filed Vital Signs Vital Sign Reading Time Taken Comments Blood Pressure 110/70 08/04/2015 8:54 AM ENERGY CONSERVATION ENGINEER Pulse 91 08/04/2015 8:54 AM ENERGY CONSERVATION ENGINEER Temperature - - Respiratory Rate - - Oxygen Saturation - - Inhaled Oxygen Concentration - - Weight 102.5 kg (226 lb) 08/04/2015 8:54 AM ENERGY CONSERVATION ENGINEER Height 163.8 cm (5' 4.5 ) 08/04/2015 8:54 AM ENERGY CONSERVATION ENGINEER Body Mass Index 38.19 08/04/2015 8:54 AM ENERGY CONSERVATION ENGINEER Plan of Treatment Health Maintenance Due Date Last Done Comments Cervical Cancer Screening Pa p Smear (Age 30 to 64) Every 3 Years 1985 Annual Physical 1986 Hepatitis C 2001 DTaP, Tdap and Td Vaccines ( 1 - Tdap) 2002 Hepatitis B Vaccines (1 of 3 - 19+ 3-dose series) 2002 Cervical Cancer Screening Pa p with HPV Testing (Age 30 to 64) Every 5 Years 2013 Cervical Cancer Screening wi th HPV 2013 Mammogram Screening 2023 COVID-19 Vaccine (2023-2 5 season) 2024 10/19/2020, 09/29/2020 HPV Vaccines Aged Out No longer eligi ble based on patient's age to complete this topic Meningococcal B Vaccine Aged Out No l onger eligible based on patient's age to complete this topic Meningococcal Vaccine Aged Out No abhijeet nina eligible based on patient's age to complete this topic Pneumococcal Vaccine: Pediatrics (0 to 5 Years) and At-Risk Patients (6 to 64 Years) Aged Out No longer eligible b ased on patient's age to complete this topic RSV Immunizations Under 20 Months Aged Out No longer eligible b ased on patient's age to complete this topic
[2024-10-16 04:26] VITALS: BP 148/89; PULSE 63; RESP 17; O2SAT 100
--- OUTSIDE RECORDS SUMMARY | 2024-10-16 04:38 | XMS_ITS | Referral Summary ---
Author Organization [facility] Address [address] [place] [address] Care Team Providers Care Manager Administrative Services Name Role Phone Marycruz Fernández MD Primary Care Provider + Vinny Dowling DO Unavailable [phone] Juve Guerrero MD Unavailable [phone] Encounters Date Type Department Care Team Description 10/13/2024 Orders Only [facility] Health Information Management [address] [place] [address] Scanning, Provider from Last 3 Months Allergies [...] (six) hours as needed for pain Active ecxijlgp-igsr-T D-pfcudvh-isck (One-A-Day Womens Formula) 18 mg iron-400 mcg-500 [...] on file Legal Sex Female 8:43 PM SLUDGE FILTRATION OPERATOR Gender Identity Not on file Sexual Orientation Straight 04/25/2020 2: 24 PM CDT 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 Medical Devices Implanted Type Area Owner Operator Device Identifier Shelf Expiration Date Model / Serial / Lot [employer]onic Inc [id number] Vectris 5mm 60cm 1x8 Electrode Mri Lead Neurostimulator - [id number] Implanted:Qty: 1 on 08/11/2020 by Nissa Roberts MD at [facility] Lead Left: Thoracic -Lumbar Spine [employer] Inc 06/01/2023 [id number] / / [id number] [employer] Inc [id number] Vectris 5mm 60cm 1x8 Electrode Mri Lead Neurostimulator - [id number] Implanted:Qty: 1 on 08/11/2020 by Nissa Roberts MD at [facility] Lead Left: Thoracic -Lumbar Spine [employer] Inc 06/01/2023 [id number] / / [id number] [employer] Inc [id number] Vectris 5mm 60cm 1x8 Electrode Trial Lead Neurostimulator - [id number] - [id number] Implanted:Qty: 1 on 07/06/2020 by Nissa Roberts MD at [facility] 4 Spinal Cord Stimulator [employer] Inc 03/24/2024 [id number] / [id number] / Description:07/12/20 receive d 70% relief from SCS trial [employer] [id number] Vectris 5mm 60cm 1x8 Electrode Trial Lead Neurostimulator - [id number] - [id number] Implanted:Qty: 1 on 07/06/2020 by Nissa Roberts MD at [facility] 4 Spinal Cord Stimulator Med[employer]onic Inc 06/12/2024 [id number] / [id number] / Copper (Paragard) Iud Uterus Med[employer]onic Inc [id number] Neurostimulator Implantable Chronic Pain Rs2 - [id number] - [id number] Implanted:Qty: 1 on 08/11/2020 by Nissa Roberts MD at [facility] Left: Flank [employer] Inc 04/09/2021 [id number] / [id number] / Description:[email or web address]. pdf Procedures Procedure Name Priority Date/Time Associated Diagnosis Comments SCAN - OTHER ORDERS 10/13/2024 PAP ONLY Routine 06/23/2020 2:19 PM SLUDGE FILTRATION OPERATOR from Last 3 Months or Most Recently Relevant to Health Maintenance Results * SCAN - OTHER ORDERS (10/13/2024) us Provider Scanning Final Result * Pap Only (06/23/2020 2:19 PM SLUDGE FILTRATION OPERATOR) CLINICAL INFORMATION: SCREEN [employer] [facility] LMP 05/24/20 [employer] [facility] Previous Pap INFORMATION NOT PROVIDED [employer] [facility] Prev. Bx INFORMATION NOT PROVIDED [facility] SOURCE: Cervix, Endocervix [employer] [facility] Pap, specimen adequacy Satisfactory for evaluation. Endocervical/kohler sformation zone component present. [employer] [facility] HPV interp Negative for intraepithelial lesion or malignancy. [facility] General Lithographic Worker GABRIEL LYON(ASCP) CT screening location: [place] [address] Administration [address] [address] [facility] Comment [facility] Comment: EXPLANATORY NOTE: The Pap is a screening test for cervical cancer. It is not a diagnostic test and is subject to false negative and false positive results. It is most reliable when a satisfactory sample, regularly obtained, is submitted with relevant clinical findings and history, and when the Pap result is evaluated along with historic and current clinical information. 06/23/2020 2:19 PM SLUDGE FILTRATION OPERATOR 06/26/2020 6:34 AM SLUDGE FILTRATION OPERATOR us Juve Guerrero MD LAB CYTOLOGY ORDERABLES Final Result [place] [address] Administration [place] [phone] from Last 3 Months or Most Recently Relevant to Health Maintenance Insurance [employer]ade OOS Advance Directives For more information, please contact: [phone] * Full Code (Latest Code Status on File) Date Activated Date Inactivated Comments 08/11/2020 4:00 PM 08/11/2020 9:57 PM Care Teams Manager Administrative Services Relationship Specialty Start Date End Date Marycruz Fernández MD [address] [place] [address] PCP - General Family Medicine 06/23/20 Vinny Dowling DO [address] [facility] [address] [place] [address] Referring Physician Psychiatry 06/23/20 Juve Guerrero MD [address] [facility] [address] [place] [address] Consulting Physician Obstetrics and Gynecology 02/05/24
--- OUTSIDE RECORDS SUMMARY | 2024-10-16 04:38 | XMS_ITS | Clinical Summary ---
Author Organization [facility] Address [address] [facility] [place] [address] Care Team Providers Care Clay Pigeon Loader Name Role Phone Marycruz Fernández MD Primary Care Provider [phone] Source Comments [facility],non-owned Affiliates and Associated Physician Practices is amultiple site organization consisting of ambulatory clinics and hospital sitesin [place], [place] and [place]. This disclosure is being madepursuant to the Care Everywhere program and may not contain all information available regarding this patient. Last updated 18.[facility] [employer] Allergies No known active allergies Medications * [...] Comments Blood Pressure 130/81 09/16/2018 10:21 AM TRUCK HEADLIGHT ASSEMBLER Pulse 82 09/16/2018 10:21 AM TRUCK HEADLIGHT ASSEMBLER Temperature 36.7 C (98.1 F) 09/16/2018 10:21 AM TRUCK HEADLIGHT ASSEMBLER Respiratory Rate 20 08/07/2018 9:30 PM TRUCK HEADLIGHT ASSEMBLER Oxygen Saturation 100% 09/16/2018 10:21 AM TRUCK HEADLIGHT ASSEMBLER Inhaled Oxygen Concentration - - Weight 108.9 kg (240 lb) 09/16/2018 10:21 AM TRUCK HEADLIGHT ASSEMBLER Height 160 cm (5' 3 ) 09/16/2018 10:21 AM TRUCK HEADLIGHT ASSEMBLER Body Mass Index 42.51 09/16/2018 10:21 AM TRUCK HEADLIGHT ASSEMBLER Plan of Treatment Health Maintenance Due Date [...] 1:44 PM 12/22/2011 3:58 AM Care Teams Clay Pigeon Loader Relationship Specialty Start Date End Date Marycruz Fernández MD [address] [place] [address] [place] [id number] PCP - General 06/10/18
--- OUTSIDE RECORDS SUMMARY | 2024-10-16 04:38 | XMS_ITS | Encounter Summary ---
Author Organization [facility] Address [address] [place] [address] Care Team Providers Care Second Worker Name Role Phone Marycruz Fernández MD Primary Care Provider + Vinny Dowling DO Unavailable [phone] Juve Guerrero MD Unavailable [phone] Encounter Details Date Type Department Care Team (Late st Contact Info) Description 10/13/2024 Orders Only [facility] Health Information Management [address] [place] [address] Scanning, Provider Social History Tobacco Use Types [...] on file Legal Sex Female 8:43 PM MANAGER CITY Gender Identity Not on file Sexual Orientation Straight 04/25/2020 2: 24 PM CDT 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 documented as of this encounter Procedures Procedure Name Priority Date/Time Associated Diagnosis Comments SCAN - OTHER ORDERS 10/13/2024 documented in this encounter Results * SCAN - OTHER ORDERS (10/13/2024) us Provider Scanning Final Result documented in this encounter Visit Diagnoses Not on filedocumented in this encounter Care Teams Second Worker Relationship Specialty Start Date End Date Marycruz Fernández MD [address] [place] [address] [address] [place] [address] PCP - General Family Medicine 06/23/20 Vinny Dowling DO [address] [facility] [address] [place] [address] Referring Physician Psychiatry 06/23/20 Juve Guerrero MD [address] [facility] [address] [place] [address] Consulting Physician Obstetrics and Gynecology 02/05/24 documented as of this encounter
--- OUTSIDE RECORDS SUMMARY | 2024-10-16 04:38 | XMS_ITS | Clinical Summary ---
Author Organization [facility] Address [address] [place] [address] Care Team Providers Care Mirror Painter Name Role Phone Unavailable Primary Care Provider [...] Comments Blood Pressure 110/70 08/04/2015 8:54 AM NATURAL RESOURCES SPECIALIST Pulse 91 08/04/2015 8:54 AM NATURAL RESOURCES SPECIALIST Temperature - - Respiratory Rate - - Oxygen Saturation - - Inhaled Oxygen Concentration - - Weight 102.5 kg (226 lb) 08/04/2015 8:54 AM NATURAL RESOURCES SPECIALIST Height 163.8 cm (5' 4.5 ) 08/04/2015 8:54 AM NATURAL RESOURCES SPECIALIST Body Mass Index 38.19 08/04/2015 8:54 AM NATURAL RESOURCES SPECIALIST Plan of Treatment Health Maintenance Due Date [...]
--- OUTSIDE RECORDS SUMMARY | 2024-10-16 04:38 | XMS_ITS | Clinical Summary ---
Author Organization [facility] Address [address] [place] [address] Care Team Providers Care Ophthalmic Medical Assistant Name Role Phone Marycruz Fernández MD Primary Care Provider + Vinny Dowling DO Unavailable [phone] Juve Guerrero MD Unavailable [phone] Allergies Active Allergy Reactions Criticality Noted Date [...] (six) hours as needed for pain Active bmutfsqi-yosu-O M-ihdrjyc-cgau (One-A-Day Womens Formula) 18 mg iron-400 mcg-500 [...] 01/19/2018 Overview (01/06/2020): 12/2017 -- Overdose SSRI/Wellbutrin. 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 Medical Devices Implanted Type Area Wet Process Miller Device Identifier Shelf Expiration Date Model / Serial / Lot Med[employer]onic Inc [id number] Vectris 5mm 60cm 1x8 Electrode Mri Lead Neurostimulator - [id number] Implanted:Qty: 1 on 08/11/2020 by Nissa Roberts MD at [facility] Lead Left: Thoracic -Lumbar Spine [employer] Inc 06/01/2023 [id number] / / [id number] [employer] Inc [id number] Vectris 5mm 60cm 1x8 Electrode Mri Lead Neurostimulator - [id number] Implanted:Qty: 1 on 08/11/2020 by Nissa Roberts MD at [facility] Lead Left: Thoracic -Lumbar Spine [employer] Inc 06/01/2023 [id number] / / [id number] [employer] Inc [id number] Vectris 5mm 60cm 1x8 Electrode Trial Lead Neurostimulator - [id number] - [id number] Implanted:Qty: 1 on 07/06/2020 by Nissa Roberts MD at [facility] 4 Spinal Cord Stimulator Med[employer] Inc 03/24/2024 [id number] / [id number] / Description:07/12/20 receive d 70% relief from SCS trial [employer] Inc [id number] Vectris 5mm 60cm 1x8 Electrode Trial Lead Neurostimulator - [id number] - [id number] Implanted:Qty: 1 on 07/06/2020 by Nissa Roberts MD at [facility] 4 Spinal Cord Stimulator Med[employer]onic Inc 06/12/2024 [id number] / [id number] / Copper (Paragard) Iud Uterus Medtronic Inc [id number] Neurostimulator Implantable Chronic Pain Rs2 - [id number] - [id number] Implanted:Qty: 1 on 08/11/2020 by Nissa Roberts MD at [facility] Left: Flank [employer]onic Inc 04/09/2021 [id number] / [id number] / Description:[email or web address]. pdf Procedures Procedure Name Priority Date/Time Associated Diagnosis Comments SCAN - OTHER ORDERS 10/13/2024 PAP ONLY Routine 06/23/2020 2:19 PM SURGICAL PATHOLOGIST from Last 3 Months or Most Recently Relevant to Health Maintenance Results * SCAN - OTHER ORDERS (10/13/2024) us Provider Scanning Final Result * Pap Only (06/23/2020 2:19 PM SURGICAL PATHOLOGIST) CLINICAL INFORMATION: SCREEN [employer] [facility] LMP 05/24/20 [employer] [facility] Previous Pap INFORMATION NOT PROVIDED [employer] [facility] Prev. Bx INFORMATION NOT PROVIDED [facility] [employer] [facility] SOURCE: Cervix, Endocervix [employer] [facility] Pap, specimen adequacy Satisfactory for evaluation. Endocervical/kohler sformation zone component present. [employer] [facility] HPV interp Negative for intraepithelial lesion or malignancy. [facility] Information Technology Associate GABRIEL LYON(ASCP) CT screening location: [place] [address] [address] [place] [id number] [facility] Comment [facility] Comment: EXPLANATORY NOTE: The Pap is [...] and current clinical information. 06/23/2020 2:19 PM SURGICAL PATHOLOGIST 06/26/2020 6:34 AM SURGICAL PATHOLOGIST us Juve Guerrero MD LAB CYTOLOGY ORDERABLES Final Result [place] [address] [address] [place] [phone] from Last 3 Months or Most Recently Relevant to Health Maintenance Insurance [employer] OOS [employer] [place] [employer] OOS Advance Directives For more information, please contact: [phone] * Full Code (Latest Code Status on File) Date Activated Date Inactivated Comments 08/11/2020 4:00 PM 08/11/2020 9:57 PM Care Teams Ophthalmic Medical Assistant Relationship Specialty Start Date End Date Marycruz Fernández MD [address] [place] [address] PCP - General Family Medicine 06/23/20 Vinny Dowling DO [address] [facility] [address] [place] [address] Referring Physician Psychiatry 06/23/20 Juve Guerrero MD [address] [place] [address] Consulting Physician Obstetrics and Gynecology 02/05/24
--- OUTSIDE RECORDS SUMMARY | 2024-10-16 04:38 | XMS_ITS | Encounter Summary ---
Author Organization [facility] Address [address] [place] [address] Care Team Providers Care Stereotyper Name Role Phone Marycruz Fernández MD Primary Care Provider + Vinny Dowling DO Unavailable [phone] Nissa Roberts MD Unavailable Juve Guerrero MD Unavailable Reason for Visit * Reason Onset Date Comments Pre Arrival 05/27/2022 Encounter Details Date Type Department Care Team (Late st Contact Info) Description 05/27/2022 Telephone [facility] at [facility] [address] [facility] [address] [place] [address] Tammy Peace RN Pre Arrival [...] on file Legal 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 documented as of this encounter Visit Diagnoses Not on filedocumented in this encounter Additional Health Concerns Infection Onset Date Last Indicated Resolved Time COVID: Suspected 02/28/2023 02/28/2023 02/28/2023 11:36 AM CDT documented as of this encounter Care Teams Stereotyper Relationship Specialty Start Date End Date Marycruz Fernández MD [address] [place] [address] [address] [place] [address] PCP - General Family Medicine 06/23/20 Vinny Dowling DO [address] [place] [address] Referring Physician Psychiatry 06/23/20 Nissa Roberts MD [address] [place] [address] Anesthesiologist Pain Management 12/31/21 01/27/24 Juve Guerrero MD [address] [facility] [address] [place] [address] Consulting Physician Obstetrics and Gynecology 02/05/24 documented as of this encounter
--- OUTSIDE RECORDS SUMMARY | 2024-10-16 04:38 | XMS_ITS ---
Author Organization [facility] Address [facility] [facility] [address] [place] [address] Care Team Providers Care Deputy Sheriff Name Role Phone Marycruz Fernández MD Primary Care Provider [place] Unavailable [phone] REASON FOR VISIT Lurasidone Medications Medication SIG (Take, Route, Fr equency, Duration) Notes Start Date End Date Status Lurasidone HCl 80 MG 1 tablet in the susy brian with food Orally Once a day for 30 day(s) 09/13/2024 Active Lurasidone HCl 40 MG 0.5 tablet once a d ay for 7 days, 1 tablet once a day for 7 days Orally for 14 days 09/13/2024 Active Social History Sex Assigned At : Social History Observation Description Sex Assigned At Female Encounters Encounter Location Date Provider Diagnosis [facility] [employer] [address] [address] 09/13/2024 Donna Sneed Bipolar I disorder F31.9 Assessments Encounter Date Diagnosis (ICD Code) Assessment Notes Treatment Notes Treatment Clinical Notes Section Notes 09/13/2024 Bipolar I disorder (ICD-10 - F31.9) Plan Of Treatment Medication Medication Name Sig Start Date Stop Date Notes Lurasidone HCl 80 MG 1 tablet in the susy brian with food Orally Once a day for 30 day(s) 09/13/2024 Lurasidone HCl 40 MG 0.5 tablet once a d ay for 7 days, 1 tablet once a day for 7 days Orally for 14 days 09/13/2024 Lurasidone HCl 20 MG 1 tablet once a day for 7 days, 2 tablets once a day for 21 days Orally 08/23/2024 Next Appt Details Provider Name:Donna linares, 10/29/2024 11:30:00 AM, [address], [facility] [address], [place], [address], Progress Notes * RODRIGO THOMPSONDOB:1985 ([age] yo F)Acc No.[id number]:09/13/2024 Patient: RODRIGO FLAHERTY :1985 A ge:39 Y S ex:Female Address:[address] [place] [address], [id number] * Refills Stop Lurasidone HCl Tablet, 20 MG, Orally, 1 tablet once a day for 7 days, 2 tablets once a day for 21 days Start Lurasidone HCl Tablet, 40 MG, Orally, 10.5 tablet, 0.5 tablet once a day for 7 days, 1 tablet once a day for 7 days, 14 days Start Lurasidone HCl Tablet, 80 MG, Orally, 30, 1 tablet in the evening with food, Once a day, 30 day(s) Subjective: * Chief Complaints: * L urasidone * Medical History: * Surgical History: * Hospitalization/Major Diagno stic Procedure: * Medications: Objective: * Vitals: * Physical Examination: Assessment: * Assessment: 1. B ipolar I disorder - F31.9 Plan: * Treatment: * Procedure Codes: * true * Date: Generated for Valerie benitez/Irma/Leo on: 0 10/16/2024 01:10 AM CDT
--- OUTSIDE RECORDS SUMMARY | 2024-10-16 04:38 | XMS_ITS | Patient Health Record ---
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 Latuda 80 mg in evening with food, bupropion in morning Plan: - Continue current medication regimen - Monitor mood and anxiety levels during follow-up visits Insomnia - No improvement in sleep despite current medications - Reports tiredness and fatigue, slightly improved after medication adjustment - Reports sleep study in the past indicated mild sleep apnea in the past, not treated Plan: - Consider referral to sleep specialist for evaluation and management of sleep apnea - Practice good sleep hygiene - Continue monitoring energy levels during follow-up visits Follow-up in 3 months to monitor progress, medication effectiveness, and address any concerns or questions 06/07/2024 Panic disorder (ICD-10 - F41.0) Assessment and Plan: 1. bipolar disorder, current episode depressed Plan: - cont lamotrigine, Latuda, lithium - patient reluctant to make medication adjustments, has been on this treatment regimen for a long time. Open to trialing different medications in the future, plans to follow up at pain clinic soon, as they are changing medications around too. - Patient has trialed many different psychotropic medications in the past with subpar response. Is fearul of increasing anything with the potential of being sedating and increasing her tiredness/fatigue/ anergia - Agreed to increase Bupropion from 300 mg to 450 mg daily for now in hopes of improving depressed mood, energy, motivation, concentration - Reassess mood and energy levels at follow-up visit after pain clinic visit and holidays 2. Anxiety - Patient reports anxiety as manageable and not causing significant distress. - Patient describes anxiety as okay and kind of there, but manageable. Plan: - Continue sertraline 100 mg daily and monitor anxiety levels at follow-up visit. 3. Insomnia - Patient reports staying up too late and not feeling well-rested. Trazodone is rarely taken. - Patient mentions falling asleep on the couch and feeling fatigued and tired during the day. Plan: - Encourage patient to establish a regular sleep schedule and consider taking Trazodone as needed for sleep. - Reassess sleep quality at follow-up visit. 4. Chronic Pain and Arthritis - Patient is under the care of a pain management doctor and has a neurostimulator in place for back pain. - Patient expresses concern about physical problems, including arthritis causing significant pain. Plan: - Encourage patient to continue working with pain management doctor to optimize pain control. - Discuss potential interactions between pain medications and mental health medications at follow-up visit. 5. Substance Use - Patient reports daily use of CBD gummies (for pain) and high caffeine intake through energy drinks. Plan: - Monitor substance use and discuss potential impact on mental health at follow-up visit. Reports just had lab work done, including a lithium level which she states was normal . will look for and review 08/06/2024 Panic disorder (ICD-10 - F41.0) Bipolar Disorder and Anxiety - Reports decent mood and manageable anxiety levels, no concerns of jackelyn - Current medications: sertraline 100 mg, lamotrigine 1.5 tablets twice daily, lithium 450 mg twice daily, Latuda 80 mg in evening with food, bupropion in morning Plan: - Continue current medication regimen - Monitor mood and anxiety levels during follow-up visits Insomnia - No improvement in sleep despite current medications - Reports tiredness and fatigue, slightly improved after medication adjustment - Reports sleep study in the past indicated mild sleep apnea in the past, not treated Plan: - Consider referral to sleep specialist for evaluation and management of sleep apnea - Practice good sleep hygiene - Continue monitoring energy levels during follow-up visits Follow-up in 3 months to monitor progress, medication effectiveness, and address any concerns or questions 01/06/2024 Chronic insomnia (ICD-10 - F51.04) reports long-term, since childhood; pcp prescribing trazodone practice good sleep hygeine 08/06/2024 History of alcohol abuse (ICD-10 - F10.11) Bipolar Disorder and Anxiety - Reports decent mood and manageable anxiety levels, no concerns of jackelyn - Current medications: sertraline 100 mg, lamotrigine 1.5 tablets twice daily, lithium 450 mg twice daily, Latuda 80 mg in evening with food, bupropion in morning Plan: - Continue current medication regimen - Monitor mood and anxiety levels during follow-up visits Insomnia - No improvement in sleep despite current medications - Reports tiredness and fatigue, slightly improved after medication adjustment - Reports sleep study in the past indicated mild sleep apnea in the past, not treated Plan: - Consider referral to sleep specialist for evaluation and management of sleep apnea - Practice good sleep hygiene - Continue monitoring energy levels during follow-up visits Follow-up in 3 months to monitor progress, medication effectiveness, and address any concerns or questions 01/06/2024 History of alcohol abuse (ICD-10 - F10.11) sober now for 5-6 yrs 06/07/2024 History of alcohol abuse (ICD-10 - F10.11) Assessment and Plan: 1. bipolar disorder, current episode depressed Plan: - cont lamotrigine, Latuda, lithium - patient reluctant to make medication adjustments, has been on this treatment regimen for a long time. Open to trialing different medications in the future, plans to follow up at pain clinic soon, as they are changing medications around too. - Patient has trialed many different psychotropic medications in the past with subpar response. Is fearul of increasing anything with the potential of being sedating and increasing her tiredness/fatigue/ anergia - Agreed to increase Bupropion from 300 mg to 450 mg daily for now in hopes of improving depressed mood, energy, motivation, concentration - Reassess mood and energy levels at follow-up visit after pain clinic visit and holidays 2. Anxiety - Patient reports anxiety as manageable and not causing significant distress. - Patient describes anxiety as okay and kind of there, but manageable. Plan: - Continue sertraline 100 mg daily and monitor anxiety levels at follow-up visit. 3. Insomnia - Patient reports staying up too late and not feeling well-rested. Trazodone is rarely taken. - Patient mentions falling asleep on the couch and feeling fatigued and tired during the day. Plan: - Encourage patient to establish a regular sleep schedule and consider taking Trazodone as needed for sleep. - Reassess sleep quality at follow-up visit. 4. Chronic Pain and Arthritis - Patient is under the care of a pain management doctor and has a neurostimulator in place for back pain. - Patient expresses concern about physical problems, including arthritis causing significant pain. Plan: - Encourage patient to continue working with pain management doctor to optimize pain control. - Discuss potential interactions between pain medications and mental health medications at follow-up visit. 5. Substance Use - Patient reports daily use of CBD gummies (for pain) and high caffeine intake through energy drinks. Plan: - Monitor substance use and discuss potential impact on mental health at follow-up visit. Reports just had lab work done, including a lithium level which she states was normal . will look for and review Plan Of Treatment Next Appt Details Provider Name:Donna linares, 10/29/2024 11:30:00 AM, [address] [facility] [address] [facility] [address], [place], [address], Insurance Providers Payer Name Payer Address Payer Phone Subscriber Number Group Number Insured Name Patient Relationship to Insured Coverage Start Date Coverage End Date [facility] [address] [place] [address] [id number] RODRIGO THOMPSON Self - patient is the insured Medical (General) History Medical History History ICD Code Past Psychiatric History: Anxiety Disord er,PTSD,Bipolar Disorder undefined Chronic insomnia History of alcoholism Obesity Surgical History Surgery Date(Month/Year) Other nerve stimulator for pain 07/21/19 Other herniated disc 08/20/2013
--- OUTSIDE RECORDS SUMMARY | 2024-10-16 04:38 | XMS_ITS | Clinical Summary ---
Author Organization [facility] Address [address] [place] [phone] Phone Care Team Providers Care Behavioral Medical Director Name Role Phone Quentin Duque MD Primary Care Provider [phone] Social History Tobacco Use Types Packs/Day Years [...] patient's age to complete this topic Insurance [facility] [id number] Care Teams Behavioral Medical Director Relationship Specialty Start Date End Date Quentin Duque MD [address] [place] [address] PCP - General Family Practice 12/22/13
--- OUTSIDE RECORDS SUMMARY | 2024-10-16 04:38 | XMS_ITS | Encounter Summary ---
Author Organization [facility] Healthcare Address [address] [place] [address] Care Team Providers Care Airport Refueling Handler Name Role Phone Marycruz Fernández MD Primary Care Provider + Vinny Dowling DO Unavailable [phone] Nissa Roberts MD Unavailable Juve Guerrero MD Unavailable [phone] Encounter Details Date Type Department Care Team (Late st Contact Info) Description 01/15/2021 Telephone [facility] [address] 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 documented as of this encounter Visit Diagnoses Not on filedocumented in this encounter Additional Health Concerns Infection Onset Date Last Indicated Resolved Time COVID: Suspected 02/28/2023 02/28/2023 02/28/2023 11:36 AM CDT documented as of this encounter Care Teams Airport Refueling Handler Relationship Specialty Start Date End Date Marycruz Fernández MD [address] [place] [address] [address] [place] [id number] PCP - General Family Medicine 06/23/20 Vinny Dowling DO [address] [address] Referring Physician Psychiatry 06/23/20 Nissa Roberts MD [address] [facility] [address] [place] [id number] Anesthesiologist Pain Management 12/31/21 01/27/24 Juve Guerrero MD [address] [place] [address] [address] [place] [address] Consulting Physician Obstetrics and Gynecology 02/05/24 documented as of this encounter
--- OUTSIDE RECORDS SUMMARY | 2024-10-16 04:38 | XMS_ITS | Encounter Summary ---
Author Organization [facility] Healthcare Address [address] [place] [address] Care Team Providers Care Senior Policy Associate Name Role Phone Marycruz Fernández MD Primary Care Provider + Vinny Dowling DO Unavailable [phone] Nissa Roberts MD Unavailable Juve Guerrero MD Unavailable [phone] Reason for Visit * Reason Onset Date Comments Pre Arrival 01/25/2021 Encounter Details Date Type Department Care Team (Late st Contact Info) Description 01/25/2021 Telephone [facility] [address] [facility] 1st [place] [address] Padmaja Solano, DELIO Pre Arrival [...] on file Legal Sex Female 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 documented as of this encounter Visit Diagnoses Not on filedocumented in this encounter Additional Health Concerns Infection Onset Date Last Indicated Resolved Time COVID: Suspected 02/28/2023 02/28/2023 02/28/2023 11:36 AM CDT documented as of this encounter Care Teams Senior Policy Associate Relationship Specialty Start Date End Date Marycruz Fernández MD [address] [place] [address] PCP - General Family Medicine 06/23/20 Vinny Dowling DO [address] [facility] [address] [place] [id number] Referring Physician Psychiatry 06/23/20 Nissa Roberts MD [address] [facility] [address] [place] [address] Anesthesiologist Pain Management 12/31/21 01/27/24 Juve Guerrero MD [address] [facility] [address] [place] [address] Consulting Physician Obstetrics and Gynecology 02/05/24 documented as of this encounter
--- NOTE | 2024-10-16 05:46 | PC.NURSE ---
Patient uses call light and states she is leaving. This RN goes into room and speaks with patient. This RN informed patient that the ERP is in with a critical patient but is aware that she is here. Patient informed that we are doing the best we can but the provider has to come see her. Patient verbalized understanding and states I have been here for hours and haven't gotten any medications. I am just going to leave. This RN informed patient that the provider has to order medications and that this RN informed ERP of her symptoms and hx but the provider stated he wanted to come see her himself before meds or orders are placed. Patient stated I am just going to leave. Patient gathered her belongings and ambulated out of the ED with a steady gait. Patient did not get seen by ERP.
== END 2024-10-16 05:50 | disposition left against medical advice (07) ==
LOC: ANHED 04:36
PROVIDERS: Emergency Provider Emergency Medicine; PCP Nurse Practitioner Family
DX: M54.9 Dorsalgia, unspecified (principal)
CPT/HCPCS: 99199

== ENCOUNTER 2025-06-29 08:27 | Emergency (ER) | payer SELFPAY ==
--- NOTE | 2025-06-29 08:41 | ED_ITS ---
HPI - URI/Sore Throat General Chief Complaint: Urogenital-Female Stated Complaint: NAUSEA/SANON/CHILLS/FEVER/CLOUDY URINE Time Seen by Provider: 06/29/25 08:50 Source: patient Mode of arrival: ambulatory Limitations: no limitations History of Present Illness HPI Narrative: Arleth is a 39-year-old female patient presenting to the clinic today with complaints of nausea, headaches, chills, fever, cloudy urine, and low back pain times 2 days. She reports she has a chronic runny nose. Fever was high as 101. Took off for pain as she cannot take NSAIDs due to her other medications. Denies any chest pain or shortness of breath. Related Data Home Medications ?Medication ?Instructions ?Recorded ?Confirmed ?Last Taken ?Type bupropion HCl 150 mg 24 hr tablet, mg PO 10/16/24 Unk nown History extended release bupropion HCl 300 mg 24 hr tablet, mg PO 10/16/24 Unk nown History extended release gabapentin 800 mg tablet mg 10/16/24 Unknown History lamotrigine 100 mg tablet mg 10/16/24 Unknown History lithium carbonate 300 mg mg PO 10/16/24 Unknown Hist ory tablet,extended release lurasidone 20 mg tablet mg 10/16/24 Unknown History omeprazole 40 mg capsule,delayed mg 10/16/24 Unknown History release propranolol 60 mg capsule,24 mg PO 10/16/24 Unknown H istory hr,extended release sertraline 100 mg tablet mg 10/16/24 Unknown History trazodone 50 mg tablet mg 10/16/24 Unknown History Allergies Allergy/AdvReac Type Severity Reaction Status Date / Time No Known Allergies Allergy Verified 10/16/24 04:21 Review of Systems Review of Systems: Pertinent positives per HPI. Patient denies any rash, headache, visual changes, dizziness, cough, shortness of breath, chest pain, palpitations, diarrhea, constipation. [facility] Past Medical History Medical History (Updated 06/29/25 @ 08:57 by Km Cosme APRN) Migraine Depression Anxiety Bipolar 2 disorder Comments At the time of my signature, I reviewed and agree with the nursing past medical, surgical, social, and family history. There is no relevant family history pertinent to the patient complaint. Exam Narrative: General: Well-developed, obese, in no apparent distress Head: Normocephalic, atraumatic Eyes: Pupils equally round and reactive to light bilaterally, EOM intact, sclera and conjunctive clear, no discharge, lids normal Ears: TMs intact and clear, ear canals clear, no drainage, grossly hearing normal. Nose: Nares patent, clear discharge, no inflammation, no sinus tenderness. Mouth: Oral pharynx without lesions or masses, good dentition, MMM. Neck: Supple, trachea midline, no enlargement of anterior or posterior cervical nodes, no thyroid masses or goiter palpable. Cardio: Regular rate and rhythm, s1 and s2 normal, no murmur appreciated. Resp: Clear to auscultation bilaterally, no rhonchi, rales, wheezing or rubs Abdomen: Soft, pliable, bowel sounds present in all quadrants, suprapubic tender to palpation, no organomegly, bilateral CVAT tenderness. Course Course Level of Care: Express Care Visit Vital Signs Vital signs: Vital Signs Temperature 36.8 C 06/29/25 08:43 Pulse Rate 77 06/29/25 08:43 Respiratory Rate 16 06/29/25 08:43 Blood Pressure 134/114 H 06/29/25 08:43 Pulse Oximetry 100 06/29/25 08:43 Temperature 36.8 C 06/29/25 08:43 Pulse Rate 77 06/29/25 08:43 Respiratory Rate 16 06/29/25 08:43 Blood Pressure 134/114 H 06/29/25 08:43 Pulse Oximetry 100 06/29/25 08:43 [facility] MDM Narrative Medical decision making narrative: At the time of visit patient is resting comfortably on the exam table. Patient appears to be nontoxic. complaints of nausea, headaches, chills, fever, cloudy urine, and low back pain times 2 days. She reports she has a chronic runny nose. Fever was high as 101. Took off for pain as she cannot take NSAIDs due to her other medications. Denies any chest pain or shortness of breath. On exam patient has bilateral TMs intact clear, clear nasal drainage, no anterior turbinate inflammation, oral pharynx normal, no cervical lymphadenopathy, heart rates regular rate rhythm, lung sounds are clear, abdomen soft, pliable, nondistended, mild tenderness over the suprapubic region, organomegaly, bilateral CVAT tenderness. COVID testing and urinalysis dip was ordered. Labs: COVID testing was negative. Urinalysis dip positive for leukocytes, blood, protein, bili, and ketones. We will send urine for culture. Plan: I suspect patient likely has nephritis. Prescription for a 7 day course of Bactrim was sent to the pharmacy. Will also send in a prescription for nausea. We will send urine for culture. Work note was given. Supportive measures were discussed with the patient and they voiced understanding discharge instructions and agrees to treatment plan. Return precautions reviewed Differential Diagnosis Differential Diagnosis: Differential diagnostic considerations for female urogenital issues include urinary tract infection, kidney infection, bacterial vaginosis, cervicitis, ovarian cyst, vaginitis, STI exposure, ovarian torsion, ectopic , cyst of Bartholin?s gland, cystitis, dysmenorrhea. Lab Data Labs: Lab Results 06/29/25 Range/Units 08:52 POC Urine Color Yellow POC Urine Clarity Cloudy POC Urine pH 6.5 POC Ur Specif [place] 1.025 POC Urine Protein 2+ (Negative) POC Ur Glucose (UA) Negative (Negative) POC Urine Ketones 1+ (Negative) POC Urine Blood 2+ (Negative) POC Urine Nitrite Negative (Negative) POC Urine Bilirubin 1+ (Negative) POC Urine Urobilinogen 0.2 POC U Leukocyte Esteras 1+ (Negative) POC SARS CoV-2 Ag Negative (Negative) Discharge Plan Discharge Clinical Impression: Acute pyelonephritis Patient Disposition: Home Condition: Stable Instructions: Antibiotic Form, Kidney Infection (ED) Additional Instructions: COVID testing was negative in the clinic today. Urinalysis positive for leukocytes, protein, blood, ketones, and bili. We will send urine for culture. Take Bactrim and Zofran as prescribed Increase fluids and stay well hydrated Wipe front to back. May use wet wipes. Avoid tub baths If sexually active- pee before and after intercourse. Wear cotton panties Avoid tight clothing up against the genitals Follow up with your PCP in 1 week if symptoms persist. Patient Language: Sinhala Prescriptions: New sulfamethoxazole-trimethoprim [Bactrim DS] 800-160 mg tablet 1 tablet PO Q12H 7 Days Qty: 14 0RF ondansetron 8 mg tablet,disintegrating 8 mg PO Q8H PRN (Reason: nausea and vomiting) 7 Days Qty: 21 0RF No Action trazodone 50 mg tablet propranolol 60 mg capsule,extended release 24 hr PO sertraline 100 mg tablet lithium carbonate 300 mg tablet extended release PO omeprazole 40 mg capsule,delayed release(DR/EC) gabapentin 800 mg tablet lamotrigine 100 mg tablet bupropion HCl 300 mg tablet extended release 24 hr PO bupropion HCl 150 mg tablet extended release 24 hr PO lurasidone 20 mg tablet Follow-up/Referrals: UNKNOWN,DOCTOR [Primary Care Provider] Stand Alone Forms: Work/School Release IP Time of Disposition: 08:58 Quality NIHSS Nursing Documentation ED NIHSS nursing documentation: reviewed/agree
[2025-06-29 08:43] VITALS: BP 134/114; PULSE 77; RESP 16; TEMP 36.8; O2SAT 100
[2025-06-29 08:54] LABS: EDCOVIDSCREEN Negative (Negative); EDUAAPPEAR Cloudy; EDUABILI 1+ (Negative); EDUABLOOD 2+ (Negative); EDUACOLOR1 Yellow; EDUAGLUCOSE Negative (Negative); EDUAKETONE 1+ (Negative); EDUALEUKO 1+ (Negative); EDUANITRATE Negative (Negative); EDUAPH 6.5; EDUAPROTEIN 2+ (Negative); EDUASPGRAVITY 1.025; EDUAUROBILI 0.2
== END 2025-06-29 09:02 | disposition home or self-care (01) ==
PROVIDERS: Emergency Provider Nurse Practitioner Family
DX: N10 Acute pyelonephritis (principal); Z20.822 Contact with and (suspected) exposure to COVID-19; F31.9 Bipolar disorder, unspecified; F41.9 Anxiety disorder, unspecified
CPT/HCPCS: 81003; 87086; 87426; 99213; G0463